=== PATIENT | male | born 1960 | race Caucasian/White ===

== ENCOUNTER → 2016-03-11 | Day surgery (SDC) | payer OTHER ==
[2016-03-03 11:23] VITALS: BMI 32.0
[~2016-03-11] VITALS: Ht 182.9 cm; Wt 106.8 kg
[~2016-03-11] MED LIST: LIDOCAINE HCL 2% 2 ML VIAL (20MG/ML) ONE; MULT-506 PO; PROPOFOL IV EMULSION 10 MG/ML 20 ML VIAL IV ONE; SODIUM CHLORIDE 0.9% 500ML 500 ML IV ONE
[2016-03-11 08:33] VITALS: Ht 182.9 cm; Wt 106.8 kg
--- NOTE | 2016-03-11 08:46 | Endo History and Physical ---
History & Physical Date of Service: Mar 11, 2016. Chief Complaint: Diverticulitis Referring Physician: Dr. Stahl History of Present Illness 55 yo CM who presents for colonoscopy secondary to diverticulitis. Past Surgical History Hx Cardiac Surgery: No Hx Internal Defibrillator: No Hx Pacemaker: No Hx Abdominal Surgery: No Hx of Implantable Prosthesis: No Hx Post-Op Nausea and Vomiting: No Hx Cancer Surgery: No Hx Thoracic Surgery: No Hx Orthopedic: Yes (L/R TKA, LT BICEP REPAIR) Hx Urinary Tract Surgery: No Family History None Social History Smoking Status: Never Smoker Hx Substance Use: No Hx Alcohol Use: No Allergies Coded Allergies: No Known Allergies (Verified , 03/11/16) Current Medications Reported Home Medications Medications Dose Route/Sig Max Daily Dose Days Date Category Multivitamin (Multivitamins) Tab 1 Tab PO QAM 03/03/16 Reported Vital Signs Weight (Kilograms): 106.82 Height (Feet): 6 Height (Inches): 0 Physical Exam General Appearance: WD/WN, no apparent distress Respiratory/Chest: Auscultation: breath sounds normal Cardiovascular: Heart Auscultation: RRR Abdomen: Bowel Sounds: normal Inspection & Palpation: soft, non-distended, no tenderness, guarding & rebound Assessment and Plan Assessment: 55 yo CM who presents for colonoscopy secondary to diverticulitis. Plan: Proceed with colonoscopy.
--- NOTE | 2016-03-11 09:40 | GI REPORT ---
Procedure Date: 03/11/2016 8:54 AM Procedure: Colonoscopy Indications: Follow-up of diverticulitis Medicines: Monitored Anesthesia Care Complications: No immediate complications. Estimated Blood Loss: Estimated blood loss: none. Procedure: Pre-Anesthesia Assessment: - Prior to the procedure, a History and Physical was performed, and patient medications and allergies were reviewed. The patient's tolerance of previous anesthesia was also reviewed. The risks and benefits of the procedure and the sedation options and risks were discussed with the patient. All questions were answered, and informed consent was obtained. Prior Anticoagulants: The patient has taken no previous anticoagulant or antiplatelet agents. ASA Grade Assessment: I - A normal, healthy patient. After reviewing the risks and benefits, the patient was deemed in satisfactory condition to undergo the procedure. After I obtained informed consent, the scope was passed under direct vision. Throughout the procedure, the patient's blood pressure, pulse, and oxygen saturations were monitored continuously. The scope was introduced through the anus and advanced to the terminal ileum. The colonoscopy was performed without difficulty. The patient tolerated the procedure well. The quality of the bowel preparation was good. The terminal ileum, ileocecal valve, appendiceal orifice, and rectum were photographed. Findings: A 5 mm polyp was found in the ascending colon. The polyp was sessile. The polyp was removed with a hot snare. Resection and retrieval were complete. Multiple small-mouthed diverticula were found in the sigmoid colon. Non-bleeding internal hemorrhoids were found during retroflexion. The hemorrhoids were small. Impression: - One 5 mm polyp in the ascending colon, removed with a hot snare. Resected and retrieved. - Diverticulosis in the sigmoid colon. - Non-bleeding internal hemorrhoids. Recommendation: - Resume previous diet. - Continue present medications. - Repeat colonoscopy for surveillance based on pathology results. - Return to primary care physician as previously scheduled. Hua Keys DO 03/11/2016 9:40:44 AM This report has been signed electronically. Note Initiated On: 03/11/2016 8:54 AM
--- NOTE | 2016-03-11 09:43 | Discharge Instructions ---
Endoscopy Patient Instructions Date / Procedure(s) Performed Mar 11, 2016. Colonoscopy Allergy Information Coded Allergies: No Known Allergies (Verified , 03/11/16) Discharge Date / Findings Mar 11, 2016. Colon polyp Diverticulosis Internal hemorrhoids Medication Instructions OK to resume all medications today as prescribed Reported Home Medications Medications Dose Route/Sig Max Daily Dose Days Date Category Multivitamin (Multivitamins) Tab 1 Tab PO QAM 03/03/16 Reported Provider Instructions Activity Restrictions - No exercising or heavy lifting for 24 hours. - Do not drink alcohol the day of the procedure. - Do not drive a car or operate machinery until the day after the procedure. - Do not make any important decisions or sign important papers in 24 hours after the procedure. Following Day: - Return to full activity which may include returning to work/school. Diet Start your diet with liquids and light foods (jello, soup, juice, toast). Then eat your usual diet if not nauseated. Treatment For Common After Affects For mild abdominal pain, bloating, or excessive gas: - Rest - Eat lightly - Lie on right side Follow-Up Information Follow-up with Dr. Stahl as scheduled Anesthesia Information What You Should Know You have had a procedure that required some medicine to reduce anxiety and discomfort. This treatment is called moderate sedation. After receiving the treatment, you may be sleepy, but you will be able to breathe on your own. The effects of the treatment may last for several hours. Follow these instructions along with Activity/Diet recommendations noted above: * Do NOT do anything where dizziness or clumsiness would be dangerous. * Rest quietly at home today, then you can be up and about tomorrow. * Have a responsible person stay with you the rest of today. * You may have had an I.V. today. If so, you may take the dressing off later today. Recommendations Call your doctor if: * Trouble breathing * Continuous vomiting for more than 24 hours * Temperature above 101 degrees * Severe abdominal pain or bloating * Pain not relieved by pain medicine ordered * There is increased drainage or redness from any incision * A large amount of rectal bleeding greater than 2-3 tablespoons. (If you had a polyp/s removed or have hemorrhoids, a small amount of blood - from the rectum is to be expected.) * You have any unanswered questions or concerns. IN THE EVENT OF A SERIOUS EMERGENCY, GO TO THE NEAREST EMERGENCY ROOM Your discharge instructions were prepared by provider Hua Keys. Patient Instructions Signature Page Gerhard Perez Patient (or Guardian) Signature/Date: I have read and understand the instructions given to me by my caregivers. Caregiver/RN/Doctor Signature/Date: The above-named patient and/or guardian has received patient instructions on this date. + Original Patient Signature Page (only) stays with chart. Please make copy for patient.
--- NOTE | 2016-03-11 09:54 | Anesthesiology Progress Note ---
Anesthesia Post Op Note Date & Time Mar 11, 2016 at 09:54 Vital Signs Pain Intensity: 0 Vital Signs Past 12 Hours Date Time Temp Pulse Resp B/P Pulse Ox O2 Delivery O2 Flow Rate FiO2 03/11/16 09:47 84 18 123/75 98 Room Air 03/11/16 09:30 93 18 124/61 97 Room Air 03/11/16 08:46 36.7 83 18 134/84 97 Room Air Notes Mental Status: alert / awake / arousable, participated in evaluation Pt Amnestic to Procedure: Yes Nausea / Vomiting: adequately controlled Pain: adequately controlled Airway Patency, RR, SpO2: stable & adequate BP & HR: stable & adequate Hydration State: stable & adequate Anesthetic Complications: no major complications apparent
[2016-03-11 09:59] VITALS: BP 125/79; PULSE 80; O2SAT 100
== END | disposition home or self-care (01) ==
LOC: C.GI 08:13
PROVIDERS: ATTEND Internal Medicine
DX: Z09 Encounter for follow-up examination after completed treatment for conditions other than malignant neoplasm (principal); K57.30 Diverticulosis of large intestine without perforation or abscess without bleeding; D12.2 Benign neoplasm of ascending colon; K64.8 Other hemorrhoids; Z96.653 Presence of artificial knee joint, bilateral; Z98.890 Other specified postprocedural states; Z68.32 Body mass index [BMI] 32.0-32.9, adult

== ENCOUNTER 2018-03-22 07:26 | Inpatient (IN) ==
--- NOTE | 2018-03-05 15:07 | PAT Medication Instructions ---
Medication Instructions Date of Service March 05, 2018 Home Medications Multivitamins 1 tab PO QAM DO NOT take the morning of surgery Multivitamins 1 tab PO QAM Other Notes If you have any questions please call us at [phone] or [phone] or [phone] or [phone]
--- NOTE | 2018-03-06 08:28 | Anesthesiology Consultation ---
Date of Service March 06, 2018 Assessment & Plan (1) Encounter for pre-operative examination: Plan: Pt reporting sore throat and malaise at PAT appointment. Throat was mildly erythematous on exam, temperature was 99.6 F. Pt encouraged to f/u with PCP if not improved within the next few days and make surgeon aware if illness continuous closer to surgery date. Chart Review Chart Review: Acceptable Risk for Surgery and Patient seen in Pre Admission Testing Teaching & Discussion Instructed NPO after midnight before surgery, except medications with 15 cc of water. Medication instructions provided according to the [facility] guidelines. History Surgery Operation Date: 03/22/18 07:00 Proposed Procedures p Laparoscopic Sigmoid Colectomy - Niko Dickey, Height/Weight Height: 6 ft Weight: 102.9 kg Allergies Allergy/AdvReac Type Severity Reaction Status Date / Time No Known Allergies Allergy Verified 02/28/18 08:09 Medications Home Medications Medication Instructions Recorded Confirmed Last Taken multivitamin [Multiple Vitamins] 1 tab PO QAM 02/28/18 02/28/18 Unknown Past Medical History Medical History Acid reflux DIETARY CONTROLLED/NO MEDS Diverticulitis Multiple infections, multiple rounds of ABX Obesity Shingles RECENT...RESOLVED WITHIN LAST FEW DAYS Past Surgical History Surgical History History of colonoscopy History of surgery on arm LEFT BICEP RE ATTACHMENT History of total left knee replacement History of total right knee replacement Past Anesthesia History No Hx of Anesthesia Complications and No Family Hx of Anesthesia Complications History of PONV No Motion Sickness Screening History of Motion Sickness: Yes Social History Smoking Status: Never smoker Do You Dip or Chew Tobacco: No Hx Alcohol Use: Yes Alcohol type: beer alcohol intake frequency: holidays/special occasions only Alcohol Intake Frequency Comment: None since January 07 diverticulitis Hx Substance Use: No substance use type: does not use Exercise / Class Metabolic Activity II 4-5 Yardwork/Stairs/Walk up hill Review of Systems Pt denies any recent chest pain, shortness of breath, palpitations, cough, fever or URI. Currently has sore throat and had shingles a few weeks ago. Physical Exam Vital Signs BP: 135/85 P: 81bpm SPO2: 97% RA T: 99.6 F R: 16 ENMT Mouth: no dental restorations, no chipped teeth and no loose teeth Thyromental Distance: > or= 3.5 Finger Breadths (3.5) Mallampati Class: II Posterior pharynx mildly erythematous. Neck normal visual inspection; neck extension not limited Respiratory normal respiratory effort Auscultation: lungs clear to auscultation bilaterally Cardiovascular Rate/Rhythm: regular rate and regular rhythm Heart Sounds: no murmur Vessels: no carotid bruit Testing Electrocardiogram Date: 03/06/18 Findings: + NSR @ (75) Laboratory Results 03/06/18 08:14 03/06/18 08:14 Blood Type O Positive 03/06/18 08:14 Antibody Screen NEGATIVE 03/06/18 08:14
[2018-03-06 09:46] LABS: Basophils # (auto) 0.02 K/uL (0-0.2); Basophils % (auto) 0.2 %; Eosinophils # (auto) 0.16 K/uL (0-0.5); Eosinophils % (auto) 1.8 %; Hematocrit (blood only) 41.5 % (42-52); Hemoglobin 14.7 g/dL (14.0-18.0); Immature Granulocytes # (auto) 0.01 K/uL (0.00-0.02); Immature Granulocytes % (auto) 0.1 %; Lymphocytes # (auto) 1.14 K/uL (1.2-3.4); Lymphocytes % (auto) 12.9 %; Mean Corpuscular Hgb Conc 35.4 g/dL (32-36); Mean Corpuscular Volume 90.8 fL (80-100); Mean Platelet Volume 9.7 fL (7.4-10.4); Neutrophils # (auto) 6.72 K/uL (1.4-6.5); Platelet Count 162 K/uL (130-400); RDW Coefficient of Variation 13.5 % (11.5-14.5); RDW Standard Deviation 44.3 fL (36.4-46.3); Red Blood Count 4.57 M/uL (4.7-6.1); White Blood Count 8.85 K/uL (4.8-10.8)
[2018-03-06 10:00] LABS: Calcium 9.5 mg/dl (8.5-10.1); Creatinine Clr Calc Pharmacy 126.4 ml/min; Est GFR (African American) 114.9; Est GFR (Non-African American) 99.2; Potassium 4.6 mmol/L (3.5-5.1)
[~2018-03-22 07:26] MED LIST changes: +CEFAZOLIN 2000MG 2,000 MG/15 ML SYR IV SCH; +HEPARIN SOD 5,000 UNIT/0.5 ML VIAL SQ SCH; -LIDOCAINE HCL 2% 2 ML VIAL (20MG/ML) ONE; +LR 15ML/HR IV SCH; -MULT-506 PO; -PROPOFOL IV EMULSION 10 MG/ML 20 ML VIAL IV ONE; -SODIUM CHLORIDE 0.9% 500ML 500 ML IV ONE
--- NOTE | 2018-03-22 08:12 | History & Physical Bridge Note ---
Date of Service March 22, 2018 History & Physical Bridge Note I have examined the patient, reviewed the History & Physical and in the interval since the performance of the History & Physical I have noted the following changes of clinical significance: no changes noted
[2018-03-22] MEDS ORDERED: GLYCOPYRROLATE 0.2 MG/ML VIAL ONE (08:37)
[2018-03-22] MEDS ORDERED: DEXAMETHASONE SOD INJ 4 MG/ML VIAL ONE (08:37)
[2018-03-22] MEDS ORDERED: NEOSTIGMINE METHYLSULFATE 5 MG/5 ML SYR ONE (08:37)
[2018-03-22] MEDS ORDERED: MIDAZOLAM HCL 1 MG/ML 2ML VIAL ONE (08:37)
[2018-03-22] MEDS ORDERED: fentaNYL citrate 100 MCG/2 ML VIAL ONE (08:37)
[2018-03-22] MEDS ORDERED: ONDANSETRON INJ 2 MG/ML 2 ML VIAL ONE ×2 (08:37→09:53)
[2018-03-22] MEDS ORDERED: PROPOFOL IV EMULSION 10 MG/ML 20 ML VIAL IV ONE (08:37)
[2018-03-22] MEDS ORDERED: LIDOCAINE HCL 2% 2 ML VIAL/AMP(20MG/ML) INFIL ONE (08:37)
[2018-03-22] MEDS ORDERED: BUPIVACAINE/EPINEPHRINE 0.5% MPF 1:200,000 30 ML VIAL ONE (08:38)
[2018-03-22] MEDS ORDERED: HYDROmorphone INJ 1 MG/ML SYRINGE IV PRN (08:39)
[2018-03-22] MEDS ORDERED: ATROPINE SULFATE 0.1 MG/ML 10ML SYR IV PRN (08:39)
[2018-03-22] MEDS ORDERED: ONDANSETRON INJ 2 MG/ML 2 ML VIAL IV PRN ×2 (08:39→13:15)
[2018-03-22] MEDS ORDERED: KETOROLAC 30 MG/ML VIAL IV PRN (08:39)
[2018-03-22] MEDS ORDERED: SODIUM CHLORIDE 0.9% INJ 10 ML VIAL ONE (08:45)
[2018-03-22] MEDS ORDERED: BUPIVACAINE 0.5 % 5 MG/1 ML PF 10ML VIAL ONE (08:45)
[2018-03-22] MEDS ORDERED: ePHEDrine sulfate 50 MG/ML SYR ONE (09:53)
[2018-03-22] MEDS ORDERED: BUPIVACAINE LIPOSOME 1.3% 266 MG/20 ML VIAL INFIL ONE (10:28)
[2018-03-22] MEDS ORDERED: BUPIVACAINE LIPOSOME 1.3% 266 MG/20 ML VIAL ONE (10:29)
[2018-03-22] MEDS ORDERED: BUPIVACAINE 0.5 % 5 MG/1 ML MPF 30ML VIAL ONE (10:58)
--- NOTE | 2018-03-22 11:12 | Post Operative Brief Note ---
Immediate Post Op Note v1 Date of Surgery March 22, 2018 Pre & Post Diagnosis Operation Date: 03/22/18 09:00 Pre-Op Diagnosis: Diverticulitis of Sigmoid Colon Post-Op Diagnosis: Diverticulitis of Sigmoid Colon Procedure Operation Date: 03/22/18 09:00 Actual Procedures p Laparoscopic Sigmoid Colectomy(Not Applicable) - Niko Dickey DO Surgeon Niko Dickey DO Gravel Machine Operator lois Meyers Estimated Blood Loss 10 Findings Consistent with Post-Op Diagnosis Specimens sigmoid colon Drains Harden Catheter and Osvaldo-Miller Drain (10 flat)
--- NOTE | 2018-03-22 12:43 | Anesthesiology Progress Note ---
Date of Service March 22, 2018 Anesthesia Post Procedure Vital Signs Vital Signs: Temp Pulse Pulse Resp BP BP Pulse Ox 03/22/18 12:35 36.3 C L 75 14 125/76 100 03/22/18 12:25 76 14 125/80 100 03/22/18 12:15 78 12 123/79 100 03/22/18 12:05 79 16 122/70 98 03/22/18 11:55 84 18 114/73 99 03/22/18 11:48 36.3 C L 85 20 121/73 97 03/22/18 08:07 37 C 93 H 18 134/97 96 Pain Intensity Bilateral Abdomen: Pain Intensity: 3 Notes Mental Status: alert / awake / arousable Patient Amnestic to Procedure: Yes Nausea / Vomiting: adequately controlled Pain: adequately controlled Airway Patency, RR, SpO2: stable & adequate BP & HR: stable & adequate Hydration State: stable & adequate Anesthetic Complications: no major complications apparent
--- NOTE | 2018-03-22 13:54 | Operative Report ---
Post Operative Report Pre & Post Diagnosis Operation Date: 03/22/18 09:00 Pre-Op Diagnosis: Diverticulitis of Sigmoid Colon Post-Op Diagnosis: Diverticulitis of Sigmoid Colon Procedure Operation Date: 03/22/18 09:00 Actual Procedures p Laparoscopic Sigmoid Colectomy(Not Applicable) - Niko Dickey DO Surgeon Niko Dickey DO Documentation Spec lois Meyers Estimated Blood Loss 10 Findings Consistent with Post-Op Diagnosis Specimens sigmoid colon Description of Procedure After informed consent was obtained the patient was taken to the operating room and placed in supine position. After successful intubation a Harden catheter was placed and the abdomen was shaved. He was then placed in a low lithotomy position in yellowfin stirrups. The abdomen and perineum were sterilely prepped and draped in usual fashion. A periumbilical incision was made with an 11 blade scalpel and carried down through the soft tissue using cautery. The anterior rectus fascia was opened using cautery and 2 #0 Vicryl stay sutures were placed. Peritoneum was elevated with hemostats and incised under direct vision using a Metzenbaum scissor. A finger sweep was performed. A 12 mm Martin trocar was placed. The abdomen was insufflated to 20 mmHg. Laparoscope was inserted and the abdomen examined in 360. a right lower quadrant 12 mm trocar, a right mid abdominal 5 mm trocar and a left lower quadrant 5 mm trocar were all placed under direct vision. A look around the abdomen showed no gross abnormalities. The left and sigmoid colon areas were thickened and slightly inflamed with some fat wrapping. Part of the sigmoid colon was attached to the abdominal sidewall. I began by using the harmonic scalpel to take down these adhesions. We then opened the white line of Toldt and extended this up almost to the splenic flexure as well as inferiorly to the peritoneal reflection. It was rather obvious what part of the sigmoid colon was involved with the prior diverticulitis. We marked the proximal part of the colon where it appeared to have normal serosa and minimal fat wrapping. I marked this with a 3-0 Polysorb stitch. We then made a window in the distal colon near the rectosigmoid junction again and an area that had normal appearing colon. After creating a window with the harmonic scalpel I used a ALISIA purple cartridge stapler to transect the colon in this area. I then used a harmonic scalpel to take down the mesentery of the sigmoid colon up to the area of the previously placed stitch. We then extended the left lower quadrant trocar site with a scalpel and used cautery to carry this down through the soft tissue and open the fascia. We then exteriorized the colon through this incision. We used bowel clamps and divided the colon and passed it off to be sent to pathology. We then used a sizer to estimate the size of the EEA to be 28 mm. We then used 2- [address] a pursestring stitch. We placed the anvil of a 28 mm stapler into the end of the colon and secured it using the pursestring stitch. This was then dunked back into the abdominal cavity. The fascia of this port was closed using 0 PDS in a running fashion. At this point my PA I both changed our gloves. We reinsufflated the abdomen. The colon was still nice and floppy and easily laid over the pelvic brim so that we could make a tension-free anastomosis. We used sizers to come in the rectal stump easily. We then brought the handle of the EEA into the end of the rectal stump. We deployed the spike anterior to the previously made staple line. We then connected the anvil to the handle and secured them together and fired it creating a circular end to end anastomosis. Both donut rings were intact. I insufflated the anastomosis under water and it was airtight. There was adequate hemostasis at the end of the procedure. I did thoroughly irrigate the pelvis. Again no other abnormalities were identified. A 10 flat Osvaldo-Miller drain was placed in the pelvis and brought out through 1 of the trocar sites secured to the skin using 0 Vicryl. The trochars were all removed and the abdomen desufflated. The fascia the camera port was closed using 0 Vicryl in a [id number] fashion. All the wounds were irrigated and closed using 4-0 Monocryl. Marcaine was injected around them for postoperative analgesia and skin glue used as a dressing. The patient was awaken extubated and transferred to recovery in stable condition. Physician child care assistant was present through the entire case. Helped with wound exposure. He helped run the camera as well as retract the colon throughout the case. He assisted with the anastomosis wound closure and dressing placement. I attest to the content of the Intraoperative Record and any orders documented therein. Any exceptions are noted below.
[2018-03-22 15:32] LABS: INR 1.1 (0.9-1.1); Prothrombin Time 11.3 Seconds (9.0-12.0)
[2018-03-22] MEDS: CEFAZOLIN 2000MG 2,000 MG/15 ML SYR IV SCH ×2 (16:58→23:56)
[2018-03-22] MEDS: HYDROmorphone INJ 0.5 MG/0.5 ML SYR IV PRN ×2 (16:58→20:13)
[2018-03-22] MEDS: LACTATED RINGER'S 1,000 ML IV SCH ×2 (16:58→19:58)
[2018-03-23] MEDS: HYDROmorphone INJ 0.5 MG/0.5 ML SYR IV PRN ×3 (00:06→19:17)
[2018-03-23] MEDS: LACTATED RINGER'S 1,000 ML IV SCH ×3 (02:28→19:16)
[2018-03-23 07:01] LABS: Basophils # (auto) 0.01 K/uL (0-0.2); Basophils % (auto) 0.1 %; Hematocrit (blood only) 37.4 % (42-52); Hemoglobin 13.4 g/dL (14.0-18.0); Immature Granulocytes # (auto) 0.03 K/uL (0.00-0.02); Immature Granulocytes % (auto) 0.2 %; Lymphocytes # (auto) 1.51 K/uL (1.2-3.4); Lymphocytes % (auto) 11.8 %; Mean Corpuscular Hgb Conc 35.8 g/dL (32-36); Mean Platelet Volume 9.5 fL (7.4-10.4); Monocytes % (auto) 9.3 %; Neutrophils % (auto) 78.6 %; Platelet Count 218 K/uL (130-400); RDW Coefficient of Variation 13.7 % (11.5-14.5); RDW Standard Deviation 45.4 fL (36.4-46.3); Red Blood Count 4.11 M/uL (4.7-6.1); White Blood Count 12.85 K/uL (4.8-10.8)
[2018-03-23] MEDS ORDERED: KETOROLAC 30 MG/ML VIAL IV STA (07:30)
--- NOTE | 2018-03-23 07:34 | Surgery Progress Note ---
Date of Service March 23, 2018 Assessment & Plan (1) Diverticulitis: POD 1 lap sigmoid d/c stevens start clears, decrease IVF try a dose of Toradol begin Lovenox as above. overall doing ok. stevens out now. increase activity Dr. Valencia covering weekend. Subjective some pain, some problems with stevens draining, no nausea Physical Exam 2 Vital Signs (Past 24 Hours): Last Vital Signs Temp 36.4 C L 03/23/18 03:26 Pulse 68 03/23/18 03:26 Resp 18 03/23/18 03:26 BP 124/78 03/23/18 03:26 Pulse Ox 96 03/23/18 03:26 Gastrointestinal (Abdomen): Inspection/Auscultation: + abdominal surgical incision (dry) and + abdominal surgical drain present (40 cc overnight) Percussion/Palpation: abdomen soft UOP 950
[2018-03-23 07:37] LABS: BUN Creatinine Ratio 12.7 (10-20); Calcium 8.8 mg/dl (8.5-10.1); Creatinine Clr Calc Pharmacy 111.4 ml/min; Est GFR (African American) 110.5; Est GFR (Non-African American) 95.4; Potassium 4.2 mmol/L (3.5-5.1)
[2018-03-23] MEDS: CEFAZOLIN 2000MG 2,000 MG/15 ML SYR IV SCH (08:56)
[2018-03-23] MEDS: ENOXAPARIN INJ 40 MG/0.4 ML SYR SQ SCH (08:57)
--- NOTE | 2018-03-23 10:02 | Anesthesiology Progress Note ---
Date of Service March 23, 2018 Anesthesia Post Procedure Vital Signs Vital Signs: Temp Pulse Pulse Resp BP BP Pulse Ox 03/23/18 07:25 36.6 C 62 16 112/72 97 03/23/18 03:26 36.4 C L 68 18 124/78 96 03/22/18 23:42 36.7 C 74 18 120/72 94 03/22/18 19:38 36.3 C L 80 16 117/72 94 03/22/18 17:26 36.4 C L 96 H 14 131/80 94 03/22/18 16:01 36.3 C L 85 14 133/79 96 03/22/18 15:30 36.4 C L 91 H 14 124/77 95 03/22/18 15:20 36.7 C 87 16 115/74 91 03/22/18 14:45 86 16 133/82 03/22/18 13:30 80 16 122/84 97 03/22/18 13:00 36.2 C L 80 14 124/80 97 03/22/18 12:45 74 12 130/78 100 03/22/18 12:35 36.3 C L 75 14 125/76 100 03/22/18 12:25 76 14 125/80 100 03/22/18 12:15 78 12 123/79 100 03/22/18 12:05 79 16 122/70 98 03/22/18 11:55 84 18 114/73 99 03/22/18 11:48 36.3 C L 85 20 121/73 97 Pain Intensity Bilateral Abdomen: Pain Intensity: 5 Notes Mental Status: alert / awake / arousable Patient Amnestic to Procedure: Yes Nausea / Vomiting: adequately controlled Pain: adequately controlled Airway Patency, RR, SpO2: stable & adequate BP & HR: stable & adequate Hydration State: stable & adequate Anesthetic Complications: no major complications apparent
[2018-03-23] MEDS: ACETAMINOPHEN 1,000 MG/100 ML VIAL IV SCH ×2 (14:28→21:27)
[2018-03-24] MEDS: ACETAMINOPHEN 1,000 MG/100 ML VIAL IV SCH ×2 (05:20→11:29)
[2018-03-24] MEDS: HYDROmorphone INJ 0.5 MG/0.5 ML SYR IV PRN ×3 (05:20→20:22)
[2018-03-24] MEDS: LACTATED RINGER'S 1,000 ML IV SCH ×2 (05:20→15:04)
[2018-03-24 07:06] LABS: Basophils # (auto) 0.02 K/uL (0-0.2); Basophils % (auto) 0.3 %; Eosinophils # (auto) 0.07 K/uL (0-0.5); Eosinophils % (auto) 0.9 %; Hematocrit (blood only) 35.2 % (42-52); Hemoglobin 12.4 g/dL (14.0-18.0); Immature Granulocytes # (auto) 0.01 K/uL (0.00-0.02); Immature Granulocytes % (auto) 0.1 %; Lymphocytes # (auto) 1.18 K/uL (1.2-3.4); Lymphocytes % (auto) 15.7 %; Mean Corpuscular Hgb Conc 35.2 g/dL (32-36); Mean Corpuscular Volume 92.1 fL (80-100); Mean Platelet Volume 9.1 fL (7.4-10.4); Monocytes # (auto) 0.67 K/uL (0.11-0.59); Monocytes % (auto) 8.9 %; Neutrophils # (auto) 5.58 K/uL (1.4-6.5); Neutrophils % (auto) 74.1 %; Platelet Count 166 K/uL (130-400); RDW Coefficient of Variation 13.8 % (11.5-14.5); RDW Standard Deviation 45.6 fL (36.4-46.3); Red Blood Count 3.82 M/uL (4.7-6.1); White Blood Count 7.53 K/uL (4.8-10.8)
[2018-03-24 07:36] LABS: BUN Creatinine Ratio 12.7 (10-20); Calcium 8.3 mg/dl (8.5-10.1); Creatinine Clr Calc Pharmacy 130.7 ml/min; Est GFR (Non-African American) 101.8; Potassium 3.9 mmol/L (3.5-5.1)
[2018-03-24] MEDS: ENOXAPARIN INJ 40 MG/0.4 ML SYR SQ SCH (08:55)
--- NOTE | 2018-03-24 10:47 | Surgery Progress Note ---
Date of Service March 24, 2018 Assessment & Plan (1) Diverticulitis: POD #2 s/p Lap Sigmoid Patient seen and examined with Dr. Valencia Pain controlled Passing flatus, no BM yet. Tolerating clear liquid diet- will advance to full liquids for lunch. Advised pt to go slow with diet. Drain dressing changed. Please call with questions or concerns. Subjective Patient sitting in bed- resting comfortably- mild abdominal pain. Physical Exam 2 Vital Signs (Past 24 Hours): Last Vital Signs Temp 36.8 C 03/24/18 07:50 Pulse 66 03/24/18 07:50 Resp 16 03/24/18 07:50 BP 129/80 03/24/18 07:50 Pulse Ox 97 03/24/18 07:50 Gastrointestinal (Abdomen): Inspection/Auscultation: + abdominal surgical incision (healing well. no signs of infection. ) and + abdominal surgical drain present Percussion/Palpation: + abdomen tender (as expected at incision sites. ) and abdomen soft; no guarding and abdomen not rigid
[2018-03-25] MEDS: LACTATED RINGER'S 1,000 ML IV SCH ×3 (01:14→21:05)
[2018-03-25] MEDS: HYDROmorphone INJ 0.5 MG/0.5 ML SYR IV PRN ×3 (01:15→23:37)
[2018-03-25 06:51] LABS: Basophils # (auto) 0.01 K/uL (0-0.2); Basophils % (auto) 0.1 %; Eosinophils # (auto) 0.16 K/uL (0-0.5); Eosinophils % (auto) 2.3 %; Hematocrit (blood only) 37.2 % (42-52); Hemoglobin 13.3 g/dL (14.0-18.0); Immature Granulocytes # (auto) 0.02 K/uL (0.00-0.02); Immature Granulocytes % (auto) 0.3 %; Lymphocytes # (auto) 1.12 K/uL (1.2-3.4); Lymphocytes % (auto) 15.8 %; Mean Corpuscular Hgb Conc 35.8 g/dL (32-36); Mean Corpuscular Volume 92.3 fL (80-100); Mean Platelet Volume 9.1 fL (7.4-10.4); Monocytes # (auto) 0.71 K/uL (0.11-0.59); Neutrophils # (auto) 5.07 K/uL (1.4-6.5); Neutrophils % (auto) 71.5 %; Platelet Count 174 K/uL (130-400); RDW Coefficient of Variation 13.5 % (11.5-14.5); RDW Standard Deviation 45.4 fL (36.4-46.3); Red Blood Count 4.03 M/uL (4.7-6.1); White Blood Count 7.09 K/uL (4.8-10.8)
[2018-03-25 07:31] LABS: BUN Creatinine Ratio 7.5 (10-20); Calcium 8.7 mg/dl (8.5-10.1); Creatinine Clr Calc Pharmacy 124.1 ml/min; Est GFR (African American) 115.5; Est GFR (Non-African American) 99.7; Potassium 3.8 mmol/L (3.5-5.1)
--- NOTE | 2018-03-25 09:54 | Surgery Progress Note ---
Date of Service March 25, 2018 Assessment & Plan (1) Diverticulitis: POD #3 s/p Lap Sigmoid Patient seen and examined with Dr. Valencia Pain controlled, ambulating in hallway. Passing flatus, no BM Patient tolerating full liquid diet and feels hungry- will advance to low fiber diet. Incisions all clean, dry, intact. No signs of infection. POD #2 s/p Lap Sigmoid Patient seen and examined with Dr. Valencia Pain controlled Passing flatus, no BM yet. Tolerating clear liquid diet- will advance to full liquids for lunch. Advised pt to go slow with diet. Drain dressing changed. Please call with questions or concerns. Subjective Patient sitting in bed- resting comfortably- mild abdominal pain. Passing flatus, but denies BM. Physical Exam 2 Vital Signs (Past 24 Hours): Last Vital Signs Temp 37.2 C 17/ 07:50 Pulse 81 03/25/ 07:50 Resp 14 03/25/18 07:50 BP 130/80 03/25/ 07:50 Pulse Ox 96 03/25/18 07:50 Gastrointestinal (Abdomen): Inspection/Auscultation: + abdominal surgical incision (healing well. no signs of infection. ) and + abdominal surgical drain present Percussion/Palpation: + abdomen tender (as expected at incision sites. ) and abdomen soft; no guarding and abdomen not rigid
[2018-03-25] MEDS: ENOXAPARIN INJ 40 MG/0.4 ML SYR SQ SCH (10:05)
[2018-03-25] MEDS: ACETAMINOPHEN 1,000 MG/100 ML VIAL IV PRN (16:58)
[2018-03-26] MEDS: LACTATED RINGER'S 1,000 ML IV SCH (05:54)
[2018-03-26] MEDS: ACETAMINOPHEN 1,000 MG/100 ML VIAL IV PRN ×2 (05:57→14:39)
[2018-03-26 06:58] LABS: Basophils # (auto) 0.02 K/uL (0-0.2); Basophils % (auto) 0.2 %; Hematocrit (blood only) 36.6 % (42-52); Hemoglobin 13.1 g/dL (14.0-18.0); Immature Granulocytes # (auto) 0.01 K/uL (0.00-0.02); Immature Granulocytes % (auto) 0.1 %; Lymphocytes # (auto) 0.95 K/uL (1.2-3.4); Lymphocytes % (auto) 9.6 %; Mean Corpuscular Hgb Conc 35.8 g/dL (32-36); Mean Corpuscular Volume 89.9 fL (80-100); Mean Platelet Volume 9.1 fL (7.4-10.4); Monocytes # (auto) 0.97 K/uL (0.11-0.59); Monocytes % (auto) 9.8 %; Neutrophils # (auto) 7.81 K/uL (1.4-6.5); Neutrophils % (auto) 79.3 %; Platelet Count 172 K/uL (130-400); RDW Coefficient of Variation 13.4 % (11.5-14.5); RDW Standard Deviation 43.9 fL (36.4-46.3); Red Blood Count 4.07 M/uL (4.7-6.1); White Blood Count 9.86 K/uL (4.8-10.8)
[2018-03-26 07:30] LABS: Calcium 8.7 mg/dl (8.5-10.1); Creatinine Clr Calc Pharmacy 132.5 ml/min; Est GFR (African American) 118.7; Est GFR (Non-African American) 102.4; Potassium 3.7 mmol/L (3.5-5.1)
[2018-03-26] MEDS: ENOXAPARIN INJ 40 MG/0.4 ML SYR SQ SCH (08:46)
--- NOTE | 2018-03-26 09:35 | Surgery Progress Note ---
Date of Service March 26, 2018 Assessment & Plan (1) Diverticulitis: POD 4 doing well awaiting bowel movement. d/c planning Subjective feeling ok. some discomfort. no bowel movement yet. +flatus. Physical Exam 2 Vital Signs (Past 24 Hours): Last Vital Signs Temp 36.7 C 03/26/18 07:50 Pulse 98 H 03/26/18 07:50 Resp 14 03/26/18 07:50 BP 126/82 03/26/18 07:50 Pulse Ox 96 03/26/18 07:50 Physical Exam: alert. nad abd: soft. MORALES serous. wounds look good.
[2018-03-26] MEDS ORDERED: HYDROCODONE/ACETAMOPHEN 5/325MG TAB PO PRN (09:37)
[2018-03-26] MEDS ORDERED: PIPERACILL/TAZOBAC CONSULT ACTIVE PRN (19:29)
[2018-03-26] MEDS ORDERED: PIPERACILLIN/TAZOBACTAM 3.375 GM in DEXTROSE 5% 100 ML IV STA (20:21)
[2018-03-27] MEDS: ACETAMINOPHEN 1,000 MG/100 ML VIAL IV PRN (00:21)
[2018-03-27] MEDS: PIPERACILLIN/TAZOBACTAM 3.375 GM in DEXTROSE 5% 100 ML IV SCH ×3 (02:36→17:05)
--- NOTE | 2018-03-27 07:58 | Surgery Progress Note ---
Date of Service March 27, 2018 Assessment & Plan (1) Diverticulitis: pod 5 suspect infected seroma of LLQ. will open at bedside today. continue antibiotics awaiting return of bowel function. Subjective doing ok. feels better than yesterday. no bm yet. pain at LLQ incision. Physical Exam 2 Vital Signs (Past 24 Hours): Last Vital Signs Temp 37.1 C 03/27/18 07:30 Pulse 88 03/27/18 07:30 Resp 16 03/27/18 07:30 BP 123/83 03/27/18 07:30 Pulse Ox 98 03/27/18 07:30 Physical Exam: alert. nad abd: soft. LLQ with erythema/tender and appears to have fluid
[2018-03-27] MEDS: HYDROCODONE/ACETAMOPHEN 5/325MG TAB PO PRN ×2 (09:03→15:26)
[2018-03-27] MEDS: ENOXAPARIN INJ 40 MG/0.4 ML SYR SQ SCH (09:59)
[2018-03-28] MEDS: PIPERACILLIN/TAZOBACTAM 3.375 GM in DEXTROSE 5% 100 ML IV SCH ×3 (01:35→18:19)
[2018-03-28 05:53] LABS: Hematocrit (blood only) 35.3 % (42-52); Hemoglobin 12.8 g/dL (14.0-18.0); Mean Corpuscular Hgb Conc 36.3 g/dL (32-36); Mean Corpuscular Volume 89.4 fL (80-100); Mean Platelet Volume 9.2 fL (7.4-10.4); Platelet Count 188 K/uL (130-400); RDW Coefficient of Variation 13.2 % (11.5-14.5); RDW Standard Deviation 43.4 fL (36.4-46.3); Red Blood Count 3.95 M/uL (4.7-6.1); White Blood Count 10.04 K/uL (4.8-10.8)
[2018-03-28 06:28] LABS: Creatinine Clr Calc Pharmacy 127.3 ml/min; Est GFR (African American) 116.8; Est GFR (Non-African American) 100.7
[2018-03-28] MEDS: HYDROCODONE/ACETAMOPHEN 5/325MG TAB PO PRN (07:37)
--- NOTE | 2018-03-28 08:31 | Surgery Progress Note ---
Date of Service March 28, 2018 Assessment & Plan (1) Diverticulitis: POD 6 seroma of LLQ. ? infected cont antibiotics not quite ready for d/c today. likely d/c tomorrow Subjective doing ok. +BM. feels pressure building up at LLQ incision again. radha diet Physical Exam 2 Vital Signs (Past 24 Hours): Last Vital Signs Temp 36.7 C 03/28/18 07:39 Pulse 83 03/28/18 07:39 Resp 16 03/28/18 07:39 BP 112/70 03/28/18 07:39 Pulse Ox 97 03/28/18 07:39 Physical Exam: alert. nad erythema of LLQ incision improved. more of the incsion opened today and serous fluid expressed. dressing changed.
[2018-03-28] MEDS: ENOXAPARIN INJ 40 MG/0.4 ML SYR SQ SCH (08:32)
[2018-03-29] MEDS: HYDROCODONE/ACETAMOPHEN 5/325MG TAB PO PRN ×2 (00:18→14:10)
[2018-03-29] MEDS: PIPERACILLIN/TAZOBACTAM 3.375 GM in DEXTROSE 5% 100 ML IV SCH ×2 (02:20→09:29)
[2018-03-29] MEDS: ENOXAPARIN INJ 40 MG/0.4 ML SYR SQ SCH (09:28)
--- NOTE | 2018-03-29 10:09 | Surgery Progress Note ---
Date of Service March 29, 2018 Assessment & Plan (1) Diverticulitis: doing well will d/c on augmentin discussed wound care at home f/u 1 week Subjective feeling better today/would like to go home. radha diet/pain controlled Physical Exam 2 Vital Signs (Past 24 Hours): Last Vital Signs Temp 36.4 C L 03/29/18 07:02 Pulse 77 03/29/18 07:02 Resp 16 03/29/18 07:02 BP 122/81 03/29/18 07:02 Pulse Ox 98 03/29/18 07:02 Physical Exam: alert/nad LLQ wound with decreased erythema and decreased drainage
--- NOTE | 2018-03-31 03:10 | Discharge Summary ---
PRIMARY DISCHARGE DIAGNOSIS: Recurrent diverticulitis. PROCEDURE PERFORMED: Laparoscopic sigmoid colectomy. HOSPITAL COURSE: The patient is a 57-year-old male with recurrent diverticulitis taken to the operating room for laparoscopic sigmoid resection. The procedure was well tolerated. He was transferred to the surgical floor. Lovenox was used for DVT prophylaxis and perioperative antibiotics were continued for 24 hours. He was started on clear liquids on postoperative day 1. By day 2, he was passing flatus, was advanced to full liquids. He was doing well on day 3, was able to tolerate a low fiber diet. He was ambulating. Pain was managed with oral analgesics. We are waiting for a bowel movement prior to discharge. On day 5, he had some erythema around his incision which we opened a portion of the incision and packed this. He was started on IV Zosyn. His erythema was improving over the next 2 days. There was decrease in drainage. On postoperative day 7, he was stable for discharge home on oral antibiotics. There was minimal erythema and induration had resolved. His abdomen was soft. The other incisions were clean and dry. DISCHARGE INSTRUCTIONS: Discharge home. Follow up with Dr. Dickey in approximately 1 week. DISCHARGE MEDICATIONS: Augmentin 875 mg p.o. b.i.d. x1 week, [place] 1-2 tablets every 4 hours as needed. Can continue his daily home multivitamin.
== END 2018-03-29 14:25 | disposition home or self-care (01) | DRG 331 ==
LOC: ASU 07:26 → 3W 11:18

== ENCOUNTER 2022-08-31 13:19 | Observation (INO) ==
--- NOTE | 2022-08-31 13:40 | ED Triage Note ---
Date of Service August 31, 2022 History of Present Illness This patient was briefly evaluated while in triage. An abbreviated physical exam was performed. This patient is a 61-year-old Male who presents to the ED for evaluation of right sided abdominal pain x 3 weeks. Pain is intermittent in nature. Reports associated fevers, nausea, diarrhea. History of partial colectomy. Has not taken anything for his symptoms Physical Exam Constitutional: alert and oriented x3. no acute distress. HEENT: normocephalic, atraumatic. normal conjunctiva.PERRLA. EOM's grossly intact. Respiratory: lungs are clear to auscultation without wheezes, rhonchi, or rales bilaterally. equal chest rise. normal respiratory effort, no accessory muscle use. Cardiovascular: normal heart sounds without murmur. regular rate and rhythm. GI: abdomen is soft, nondistended. Tender to palpation RUQ. Positive Madrid's. No rebound tenderness or guarding. MSK: moves all 4 extremities spontaneously Psych:appropriate mood and affect. Initial orders for labs and / or imaging were placed and patient was placed in the waiting area until a bed is available. Please see further documentation for the full ED course.
[2022-08-31 14:57] LABS: Basophils # (auto) 0.02 K/uL (0-0.2); Basophils % (auto) 0.3 %; Eosinophils # (auto) 0.08 K/uL (0-0.50); Eosinophils % (auto) 1.3 %; Hematocrit (blood only) 41.6 % (42.0-52.0); Hemoglobin 14.6 g/dl (14.0-18.0); Immature Granulocytes # (auto) 0.01 K/uL (0.01-0.20); Immature Granulocytes % (auto) 0.2 %; Lymphocytes # (auto) 1.21 K/uL (1.2-3.4); Lymphocytes % (auto) 19.4 %; Mean Corpuscular Hemoglobin 32.4 pg (25.0-34.0); Mean Corpuscular Hgb Conc 35.1 g/dL (32.0-36.0); Mean Corpuscular Volume 92.4 fL (80.0-100.0); Mean Platelet Volume 9.8 fL (9.4-12.4); Monocytes # (auto) 0.48 K/uL (0.11-0.59); Monocytes % (auto) 7.7 %; Neutrophils # (auto) 4.44 K/uL (1.40-6.50); Neutrophils % (auto) 71.1 %; Platelet Count 206 K/uL (130-400); RDW Coefficient of Variation 11.9 % (11.5-14.5); RDW Standard Deviation 40.5 fL (36.4-46.3); White Blood Count 6.24 K/ul (4.8-10.8)
[2022-08-31 15:11] LABS: Albumin Globulin Ratio 1.7 (0.9-2); Albumin Level 5.2 gm/dl (3.4-5.0); BUN Creatinine Ratio 10.5 (10-20); Bilirubin,Total 0.6 mg/dl (0.2-1.0); Creatinine Clr Calc Pharmacy 108.8 ml/min; Est GFR (African American) 108.5 ml/min; Est GFR (Non-African American) 93.6 ml/min; Globulin 3.1 gm/dl (2.5-4.0); Potassium 4.2 mmol/L (3.5-5.1); Total Protein 8.3 gm/dl (6.0-8.3)
--- NOTE | 2022-08-31 15:59 | Ultrasound Report ---
ABDOMINAL ULTRASOUND, RIGHT UPPER QUADRANT HISTORY: Right upper quadrant pain.. COMPARISON: Abdomen and pelvis CT 01/10/2018. FINDINGS: Pancreas: The visualized pancreas demonstrates a normal echotexture. Liver: The liver is echogenic consistent with fatty change. 17 cm in length. The main portal vein is patent. Gallbladder: No gallbladder wall thickening. No gallstones. A 3 mm gallbladder polyp. CBD: 4 mm. Right kidney: No hydronephrosis. IMPRESSION: 1. No gallbladder wall thickening. No gallstones. 2. A 3 mm gallbladder polyp. 3. Hepatic steatosis. ACT 112: Negative or not required by law. Electronically signed by: Can Holder M.D. 08/31/2022 3:58 PM
--- NOTE | 2022-08-31 16:05 | Emergency Department Note ---
ED Provider Note History of Present Illness Chief Complaint: Abdominal Pain Stated Complaint: REF BY DOC; ABDOMINAL PAIN Time Seen by Provider: 08/31/22 15:41 Source: patient Mode of arrival: ambulatory Limitations: no limitations This patient is a 61-year-old male who presents to the ER for evaluation of abdominal pain. Patient reports that he has been having some problems with intermittent abdominal pain over the past month. He has some intermittent diarrhea and feels feverish as well. He states that he began having pain yesterday throughout the day with some nausea but felt better by the evening. However, today he noticed a sharp pain in his right lower abdomen. Reports nausea, no vomiting. He has not eaten today. He does report a history of dive rticulitis but had a colon resection in the past for this. Home Medications Medication Instructions Recorded Confirmed Type multivitamin (Multiple Vitamins 1 tab PO QAM 02/28/18 08/31/22 History tablet) Allergies Allergy/AdvReac Type Severity Reaction Status Date / Time No Known Allergies Allergy Verified 08/31/22 12:31 Past Med/Surg History Medical History Acid reflux DIETARY CONTROLLED/NO MEDS Diverticular disease MULTIPLE INECTIONS; BOWEL RESECTION History of COVID-19 ?2021- FEVER, NEVILLE, FATIGUE; RESOLVED History of shingles 2018 Surgical History History of bowel resection History of colonoscopy History of surgery on arm LEFT BICEP RE ATTACHMENT History of total left knee replacement History of total right knee replacement Family History Father Myocardial infarction Aunt Cancer Uncle Cancer Denies family history of Ovarian cancer Prostate cancer Breast cancer Colorectal cancer Social History Smoking Status: Never smoker Second Hand Exposure: No; Do You Dip or Chew Tobacco: No; Hx Alcohol Use: Yes Alcohol type: beer Hx Substance Use: No Preferred Language: Greenlandic Communication Ability: Effective Visual Impairment: No Limitations Jig Bore Operator Required: No Beliefs That Will Affect Care: None marital status: Single Current Living Situation: Other Current Living Situation Comment: FRIEND current occupational status: employed current occupation: Self employeed How many Children do You have: 3 Feels Safe at Home: Yes Childhood Exposure to Second-Hand Smoke: Yes Diet: regular caffeine: Yes Dental Care, Regularly: No Physical Activity Frequency: Daily Seatbelt Use: never Sunscreen Use: No Assistive Devices: Contacts and Glasses Physical Exam Vital Signs Vital Signs - 24 hr 08/31/22 13:37 08/31/22 16:08 08/31/22 18:41 Temperature 36.6 C Temperature Source Temporal Artery Scan Pulse Rate 84 Pulse Rate [Right Finger] 77 65 Pulse Rhythm [Right Finger] Regular Regular Respiratory Rate 16 18 18 Respiratory Effort / Characteristics Non-Labored Spontaneous Non-Labored Spontaneous Non-Labored Spontaneous Respiratory Depth Normal Normal Normal Respiratory Pattern Regular Regular Blood Pressure 137/87 Blood Pressure [Right Arm] 137/93 136/80 Blood Pressure Mean 103 Blood Pressure Mean [Right Arm] 107 98 Blood Pressure Position [Right Arm] Lying Pulse Oximetry 99 100 99 Oxygen Delivery Method Room Air Room Air Room Air Sepsis Recent Fever Within 48 Hours No Sepsis New/Unexplained Change in Mental Status No Sepsis Action Taken by Nursing No Action Required VITALS: Vitals are noted on the nurse's note and reviewed by myself. GENERAL: This is a 61-year-old male, in no acute distress, well-developed well- nourished. SKIN: The skin was without rashes. EYES: No scleral icterus. HEART: Regular rate and rhythm without murmurs gallops or rubs. LUNGS: Clear to auscultation bilaterally without wheezes, rales or rhonchi. No retractions or accessory muscle use. ABDOMEN: Positive bowel sounds x 4. Soft, moderate tenderness in the right lower quadrant. No guarding or rebound tenderness. NEURO: Patient was alert and oriented to person place and time. Course Administered Medications Discontinued Medications Ioversol (Optiray 320 100ml) 90 ml IV ONCE ONE Stop: 08/31/22 16:31 Last Admin: 08/31/22 16:30 Dose: 90 ml Documented By: AMADEO Medical Decision Making Differential Diagnosis Appendicitis, testicular torsion, infections, diverticulitis, UTI, obstruction, mesenteric ischemia, aortic pathology, inflammatory bowel disease, renal colic, PUD, pancreatitis, biliary pathology, hernia, volvulus, constipation, as well as other pathologies. Home Medications was personally reviewed by me Laboratory Data Attestation: I reviewed the patient's lab results. 08/31/22 14:30 07/26/23 14:30 Lab Results 08/31/22 08/31/22 08/31/22 Range/Units 14:30 14:30 18:43 WBC 6.24 (4.8-10.8) K/ul RBC 4.50 L (4.70-6.10) M/uL Hgb 14.6 (14.0-18.0) g/dl Hct 41.6 L (42.0-52.0) % MCV 92.4 (80.0-100.0) fL MCH 32.4 (25.0-34.0) pg MCHC 35.1 (32.0-36.0) g/dL RDW Std Deviation 40.5 (36.4-46.3) fL RDW Coeff of Lori 11.9 (11.5-14.5) % Plt Count 206 (130-400) K/uL MPV 9.8 (9.4-12.4) fL Immature Gran % (Auto) 0.2 % Neut % (Auto) 71.1 % Lymph % (Auto) 19.4 % Drew % (Auto) 7.7 % Eos % (Auto) 1.3 % Baso % (Auto) 0.3 % Neut # (Auto) 4.44 (1.40-6.50) K/uL Lymph # (Auto) 1.21 (1.2-3.4) K/uL Drew # (Auto) 0.48 (0.11-0.59) K/uL Eos # (Auto) 0.08 (0-0.50) K/uL Baso # (Auto) 0.02 (0-0.2) K/uL Immature Gran # (Auto) 0.01 (0.01-0.20) K/uL Sodium 134 L (136-145) mmol/L Potassium 4.2 (3.5-5.1) mmol/L Chloride 102 (98-107) mmol/L Carbon Dioxide 24 (21-32) mmol/L Anion Gap 8 (3-11) BUN 9 (6-23) mg/dl Creatinine 0.86 (0.6-1.4) mg/dl Est Cr Clr Drug Dosing 108.8 ml/min Est GFR ( Amer) 108.5 ml/min Est GFR (Non-Af Amer) 93.6 ml/min BUN/Creatinine Ratio 10.5 (10-20) Glucose 83 (70-99(Fasting)) mg/dl Calcium 10.0 (8.6-10.3) mg/dl Total Bilirubin 0.6 (0.2-1.0) mg/dl AST 42 H (13-39) U/L ALT 48 (7-52) U/L Alkaline Phosphatase 66 (34-104) U/L Total Protein 8.3 (6.0-8.3) gm/dl Albumin 5.2 H (3.4-5.0) gm/dl Globulin 3.1 (2.5-4.0) gm/dl Albumin/Globulin Ratio 1.7 (0.9-2) Lipase 39 (11-82) U/L Urine Color Yellow Urine Appearance Clear (Clear) Urine pH 5.5 (4.5-7.5) Ur Specific [place] 1.006 (1.000-1.030) Urine Protein Negative (Negative) Urine Glucose (UA) Negative (Negative) Urine Ketones 1+ H (Negative) Urine Blood Negative (Negative) Urine Nitrite Negative (Negative) Urine Bilirubin Negative (Negative) Urine Urobilinogen Negative (Negative) Ur Leukocyte Esterase Negative (Negative) Imaging Data Attestation: I personally reviewed and interpreted this imaging study as follo ws: Radiologist's Impression: Gallbladder Ultrasound 08/31/22 13:40 ABDOMINAL ULTRASOUND, RIGHT UPPER QUADRANT HISTORY: Right upper quadrant pain.. COMPARISON: Abdomen and pelvis CT 01/10/2018. FINDINGS: Pancreas: The visualized pancreas demonstrates a normal echotexture. Liver: The liver is echogenic consistent with fatty change. 17 cm in length. The main portal vein is patent. Gallbladder: No gallbladder wall thickening. No gallstones. A 3 mm gallbladder polyp. CBD: 4 mm. Right kidney: No hydronephrosis. IMPRESSION: 1. No gallbladder wall thickening. No gallstones. 2. A 3 mm gallbladder polyp. 3. Hepatic steatosis. ACT 112: Negative or not required by law. Electronically signed by: Can Holder M.D. 08/31/2022 3:58 PM Abdomen/Pelvis CT 08/31/22 15:[address] WITH IV CONTRAST CT DOSE: 1429.01 mGy.cm HISTORY: Acute right lower quadrant abdominal pain rlq pain TECHNIQUE: Multiaxial CT images of the abdomen and pelvis were performed following the IV administration of 90 cc of Optiray, A dose lowering technique was utilized adhering to the principles of ALARA. COMPARISON STUDY: 01/10/2018 FINDINGS: Moderate coronary artery calcifications. Clear lung bases. No pneumatosis or pneumoperitoneum. Spleen is enlarged, 15.5 cm. Unremarkable pancreas, adrenal glands, gallbladder and liver. Patency of the hepatic and portal veins. Unremarkable kidneys. No hydronephrosis. Moderate urinary bladder wall thickening with partial distention. Prostatomegaly. No abdominal aortic aneurysm. No lymphadenopathy. No bowel obstruction or bowel wall thickening. Colonic diverticulosis with partial sigmoid colon resection and colon colonic anastomosis. [id number] fecal retention. Dilated and inflamed appendix, 10 mm with probable associated appendicolith. No abscess. No acute fracture. IMPRESSION: 1. Acute uncomplicated appendicitis. 2. No pneumoperitoneum or fluid collections. 3. No bowel obstruction. 4. Splenomegaly. 5. Additional findings as above. ACT 112: Negative or not required by law. The above report was generated using voice recognition software. It may contain grammatical, syntax or spelling errors. Electronically signed by: Fran Lambert M.D. 08/31/2022 4:39 PM MDM Narrative This patient is a 61-year-old male who presents to the emergency department for evaluation of right lower quadrant abdominal pain. Labs revealed no le ukocytosis, anemia or concerning electrolyte abnormalities. Urinalysis not suggestive of infection. CT shows evidence of appendicitis. General surgery consulted and evaluated the patient. They will admit for further care and OR tomorrow. Impression Appendicitis Discharge Plan Visit Data Chief Complaint: Abdominal Pain Stated Complaint: REF BY DOC; ABDOMINAL PAIN ED Provider: Obi Patel ED Midlevel Provider: Diane Zhou Discharge Problem: Appendicitis Forms Stand Alone Forms: [employer] Prescriptions Prescriptions: No Action multivitamin [Multiple Vitamins] Tablet 1 tab PO QAM Referrals Referrals: Obed Jones DO [Primary Care Provider] -
[2022-08-31] MEDS ORDERED: OPTIRAY 320 100ml IV ONE (16:30)
--- NOTE | 2022-08-31 16:41 | CT Scan Report ---
ABDOMEN AND PELVIS CT WITH IV CONTRAST CT DOSE: 1429.01 mGy.cm HISTORY: Acute right lower quadrant abdominal pain rlq pain TECHNIQUE: Multiaxial CT images of the abdomen and pelvis were performed following the IV administrat ion of 90 cc of Optiray, A dose lowering technique was utilized adhering to the principles of ALARA. COMPARISON STUDY: 01/10/2018 FINDINGS: Moderate coronary artery calcifications. Clear lung bases. No pneumatosis or pneumoperitone um. Spleen is enlarged, 15.5 cm. Unremarkable pancreas, adrenal glands, gallbladder and liver. Patenc y of the hepatic and portal veins. Unremarkable kidneys. No hydronephrosis. Moderate urinary bladder wall thickening with partial distention. Prostatomegaly. No abdominal aortic aneurysm. No lymphadenop athy. No bowel obstruction or bowel wall thickening. Colonic diverticulosis with partial sigmoid colon rese ction and colon colonic anastomosis. Jazo-[id number] fecal retention. Dilated and inflamed appendix, 10 mm with probable associated appendicolith. No abscess. No acute fracture. IMPRESSION: 1. Acute uncomplicated appendicitis. 2. No pneumoperitoneum or fluid collections. 3. No bowel obstruction. 4. Splenomegaly. 5. Additional findings as above. ACT 112: Negative or not required by law. The above report was generated using voice recognition software. It may contain grammatical, syntax o r spelling errors. Electronically signed by: Fran Lambert M.D. 08/31/2022 4:39 PM
--- NOTE | 2022-08-31 18:07 | Surgery Consultation ---
Date of Consultation August 31, 2022 Assessment & Plan (1) Chronic appendicitis: Assessment: Patient is a 61 years old gentleman, who presented to the ED with a 2-3 week history intermittent right lower quadrant pain with some nausea no vomiting. CT scan-IMPRESSION: 1. Acute uncomplicated appendicitis. 2. No pneumoperitoneum or fluid collections. 3. No bowel obstruction. 4. Splenomegaly. 5. Additional findings as above. IMP: chronic/acute appendicitis. plan, based on pt's H/P. labs and CT scan finding. pt had a lot water intake 4 hours ago, I recommend to admit to hospital , iv antibiotic, control pain, NPO, iv fluid resuscitation then do laparoscopic appendectomy, possible, open, discussion with the patient the benefits the risk and alternatives of the procedure. I indicated the risks may include but not limited to such as bleeding, infection, abscess, injury other organs, incisional hernia, bowel obstruction. patient understood. he signed informed consent. he agreed with the treatment plan. I answered all question. D/W ER attending. History of Present Illness Reason for Consultation: appendicitis Requesting Physician: Abelardo Contreras PA History of Present Illness CC; abdominal pain. HPI: Patient is a 61 years old gentleman, who presented to the ED with a 2-3 week history intermittent right lower quadrant pain with some nausea no vomiting. patient denies any fever. the pain is located the right lower quadrant and there is a intermittent diarrhea. Patient fell multiple right lower quadrant pain today, and patient come to the ER. Patient had a colon resection for diverticulitis in the past. Patient had a CT scan shows appendicitis. Patient WBC is 6.2 normal. Patient has drink a lot of water about 3 to 4 hours ago. Allergies Allergy/AdvReac Type Severity Reaction Status Date / Time No Known Allergies Allergy Verified 08/31/22 12:31 Home Medications Medication Instructions Recorded Confirmed Type multivitamin (Multiple Vitamins 1 tab PO QAM 02/28/18 08/31/22 History tablet) Patient History Medical History Acid reflux DIETARY CONTROLLED/NO MEDS Diverticular disease MULTIPLE INECTIONS; BOWEL RESECTION History of COVID-19 ?2021- FEVER, [place]EVIL[place], FATIGUE; RESOLVED History of shingles 2019 Surgical History History of bowel resection History of colonoscopy History of surgery on arm LEFT BICEP RE ATTACHMENT History of total left knee replacement History of total right knee replacement Family History Father Myocardial infarction Aunt Cancer Uncle Cancer Denies family history of Ovarian cancer Prostate cancer Breast cancer Colorectal cancer Social History Smoking Status: Never smoker Second Hand Exposure: No; Do You Dip or Chew Tobacco: No; Hx Alcohol Use: Yes Alcohol type: beer Hx Substance Use: No Preferred Language: Urdu Communication Ability: Effective Visual Impairment: No Limitations Mold Mover Required: No Beliefs That Will Affect Care: None marital status: Single Current Living Situation: Other Current Living Situation Comment: FRIEND current occupational status: employed current occupation: Self employeed How many Children do You have: 3 Feels Safe at Home: Yes Childhood Exposure to Second-Hand Smoke: Yes Diet: regular caffeine: Yes Dental Care, Regularly: No Physical Activity Frequency: Daily Seatbelt Use: never Sunscreen Use: No Assistive Devices: Contacts and Glasses Review of Systems Constitutional: as per Subjective / HPI Eyes: as per Subjective / HPI Respiratory: as per Subjective / HPI Cardiovascular: as per Subjective / HPI Gastrointestinal: abdominal pain, colectomy Genitourinary: + as per Subjective / HPI Musculoskeletal: bilateral knee repacement Neurologic: as per Subjective / HPI Psychiatric: as per Subjective / HPI Endocrine: as per Subjective / HPI Hematologic / Lymphatic: as per Subjective / HPI Physical Exam Constitutional: WD/WN, vitals as above Eyes: PERRL, conjunctivae normal, anicteric sclerae Neck: trachea midline, no thyromegaly Respiratory: normal respiratory effort, lungs clear to auscultation Cardiovascular: RRR, no murmur, no edema Gastrointestinal (Abdomen): incision scar at middle line. mild tenderness at RLQ, no rebound pain, no distend, BS +. Musculoskeletal: no cyanosis or clubbing, extremities motor strength 5/5 Neurologic: patellar DTR's 2+ bilat, sensation intact Psychiatric: A+Ox3, euthymic affect Results & Data Vital Signs (Past 12 Hours) Vital Signs Temp Pulse Pulse Resp BP BP Pulse Ox 08/31/22 16:08 77 18 137/93 100 08/31/22 13:37 36.6 C 84 16 137/87 99 O2 Del Method 08/31/22 16:08 Room Air 08/31/22 13:37 Room Air Laboratory Results Lab Results 08/31/22 08/31/22 Range/Units 14:30 14:30 WBC 6.24 (4.8-10.8) K/ul RBC 4.50 L (4.70-6.10) M/uL Hgb 14.6 (14.0-18.0) g/dl Hct 41.6 L (42.0-52.0) % MCV 92.4 (80.0-100.0) fL MCH 32.4 (25.0-34.0) pg MCHC 35.1 (32.0-36.0) g/dL RDW Std Deviation 40.5 (36.4-46.3) fL RDW Coeff of Lori 11.9 (11.5-14.5) % Plt Count 206 (130-400) K/uL MPV 9.8 (9.4-12.4) fL Immature Gran % (Auto) 0.2 % Neut % (Auto) 71.1 % Lymph % (Auto) 19.4 % [place] % (Auto) 7.7 % Eos % (Auto) 1.3 % Baso % (Auto) 0.3 % Neut # (Auto) 4.44 (1.40-6.50) K/uL Lymph # (Auto) 1.21 (1.2-3.4) K/uL [place] # (Auto) 0.48 (0.11-0.59) K/uL Eos # (Auto) 0.08 (0-0.50) K/uL Baso # (Auto) 0.02 (0-0.2) K/uL Immature Gran # (Auto) 0.01 (0.01-0.20) K/uL Sodium 134 L (136-145) mmol/L Potassium 4.2 (3.5-5.1) mmol/L Chloride 102 (98-107) mmol/L Carbon Dioxide 24 (21-32) mmol/L Anion Gap 8 (3-11) BUN 9 (6-23) mg/dl Creatinine 0.86 (0.6-1.4) mg/dl Est Cr Clr Drug Dosing 108.8 ml/min Est GFR ( Amer) 108.5 ml/min Est GFR (Non-Af Amer) 93.6 ml/min BUN/Creatinine Ratio 10.5 (10-20) Glucose 83 (70-99(Fasting)) mg/dl Calcium 10.0 (8.6-10.3) mg/dl Total Bilirubin 0.6 (0.2-1.0) mg/dl AST 42 H (13-39) U/L ALT 48 (7-52) U/L Alkaline Phosphatase 66 (34-104) U/L Total Protein 8.3 (6.0-8.3) gm/dl Albumin 5.2 H (3.4-5.0) gm/dl Globulin 3.1 (2.5-4.0) gm/dl Albumin/Globulin Ratio 1.7 (0.9-2) Lipase 39 (11-82) U/L Diagnostic Findings ABDOMEN AND PELVIS CT WITH IV CONTRAST CT DOSE: 1429.01 mGy.cm HISTORY: Acute right lower quadrant abdominal pain rlq pain TECHNIQUE: Multiaxial CT images of the abdomen and pelvis were performed following the IV administration of 90 cc of Optiray, A dose lowering technique was utilized adhering to the principles of ALARA. COMPARISON STUDY: 01/10/2018 FINDINGS: Moderate coronary artery calcifications. Clear lung bases. No pneumatosis or pneumoperitoneum. Spleen is enlarged, 15.5 cm. Unremarkable pancreas, adrenal glands, gallbladder and liver. Patency of the hepatic and portal veins. Unremarkable kidneys. No hydronephrosis. Moderate urinary bladder wall thickening with partial distention. Prostatomegaly. No abdominal aortic aneurysm. No lymphadenopathy. No bowel obstruction or bowel wall thickening. Colonic diverticulosis with partial sigmoid colon resection and colon colonic anastomosis. Cngs-[id number] fecal retention. Dilated and inflamed appendix, 10 mm with probable associated appendicolith. No abscess. No acute fracture.
[2022-08-31 18:54] LABS: Appearance Urine Clear (Clear); Bilirubin Urine Negative (Negative); Blood Urine Negative (Negative); Color Urine Yellow; Glucose Urine UA Negative (Negative); Ketones Urine 1+ (Negative); Leukocyte Esterase Urine Negative (Negative); Nitrite Urine Negative (Negative); Protein Urine Negative (Negative); Specific Gravity Urine 1.006 (1.000-1.030); Urobilinogen Urine Negative (Negative); pH Urine 5.5 (4.5-7.5)
[2022-08-31] MEDS ORDERED: MoRPHine SULFATE 2 MG/ML CARP IV PRN (21:00)
[2022-08-31] MEDS ORDERED: MoRPHine SULFATE 4 MG/ML 1 ML CARP\\VIAL IV PRN (21:00)
[2022-08-31] MEDS ORDERED: ONDANSETRON INJ 2 MG/ML 2 ML VIAL IV PRN (21:00)
[2022-08-31] MEDS: LACTATED RINGER'S 1,000 ML IV SCH (21:15)
[2022-08-31] MEDS: cefOXitin 2,000 MG in DEXTROSE 5% 50 ML IV SCH (22:36)
[2022-09-01] MEDS: cefOXitin 2,000 MG in DEXTROSE 5% 50 ML IV SCH ×4 (03:45→22:38)
[2022-09-01 07:15] LABS: Basophils # (auto) 0.03 K/uL (0-0.2); Basophils % (auto) 0.7 %; Eosinophils # (auto) 0.18 K/uL (0-0.50); Eosinophils % (auto) 4.1 %; Hematocrit (blood only) 42.2 % (42.0-52.0); Hemoglobin 14.9 g/dl (14.0-18.0); Immature Granulocytes # (auto) 0.01 K/uL (0.01-0.20); Immature Granulocytes % (auto) 0.2 %; Lymphocytes # (auto) 1.13 K/uL (1.2-3.4); Lymphocytes % (auto) 25.6 %; Mean Corpuscular Hemoglobin 32.5 pg (25.0-34.0); Mean Corpuscular Hgb Conc 35.3 g/dL (32.0-36.0); Mean Corpuscular Volume 92.1 fL (80.0-100.0); Mean Platelet Volume 9.9 fL (9.4-12.4); Monocytes # (auto) 0.53 K/uL (0.11-0.59); Neutrophils # (auto) 2.53 K/uL (1.40-6.50); Neutrophils % (auto) 57.4 %; Platelet Count 215 K/uL (130-400); RDW Standard Deviation 40.9 fL (36.4-46.3); Red Blood Count 4.58 M/uL (4.70-6.10); White Blood Count 4.41 K/ul (4.8-10.8)
[2022-09-01] MEDS: LACTATED RINGER'S 1,000 ML IV SCH ×3 (07:15→22:38)
[2022-09-01 07:29] LABS: Albumin Globulin Ratio 1.5 (0.9-2); Albumin Level 4.6 gm/dl (3.4-5.0); BUN Creatinine Ratio 10.1 (10-20); Bilirubin,Total 0.8 mg/dl (0.2-1.0); Creatinine Clr Calc Pharmacy 117.8 ml/min; Est GFR (African American) 112.3 ml/min; Est GFR (Non-African American) 96.9 ml/min; Globulin 3.1 gm/dl (2.5-4.0); Potassium 4.3 mmol/L (3.5-5.1); Total Protein 7.7 gm/dl (6.0-8.3)
--- NOTE | 2022-09-01 07:47 | Anesthesiology Consultation ---
Date of Service September 01, 2022 Assessment & Plan Chart Review Chart Review: Acceptable Risk for Surgery and Patient NOT seen in Pre Admission Testing Consults Requested none History Surgery Operation Date: 09/01/22 07:00 Proposed Procedures p Laparoscopic Appendectomy - Parviz Pardo MD Height/Weight Height: 5 ft 11 in Weight: 99.1 kg Allergies Allergy/AdvReac Type Severity Reaction Status Date / Time No Known Allergies Allergy Verified 08/31/22 12:31 Medications Home Medications Medication Instructions Recorded Confirmed Last Taken multivitamin (Multiple Vitamins 1 tab PO QAM 02/28/18 08/31/22 08/31/22 tablet) Active Medications Generic Name Dose Route Start Last Admin Trade Name Freq PRN Reason Stop Dose Admin Lactated Ringer's 1,000 mls @ 100 mls/hr 08/31/22 21:00 09/01/22 07:15 Lr IV 09/30/22 20:59 100 mls/hr .Q10H [place] Administration Cefoxitin Sodium 2,000 mg/ 60 mls @ 100 mls/hr 08/31/22 22:00 09/01/22 04:23 Dextrose IV 09/10/22 21:59 Infused Q6H CH[place] Infusion Protocol Past Medical History Medical History Acid reflux DIETARY CONTROLLED/NO MEDS Diverticular disease MULTIPLE INECTIONS; BOWEL RESECTION History of COVID-19 ?2021- FEVER, [place], FATIGUE; RESOLVED History of shingles 2018 Past Family History Family History Father Myocardial infarction Aunt Cancer Uncle Cancer Denies family history of Ovarian cancer Prostate cancer Breast cancer Colorectal cancer Past Surgical History Surgical History History of bowel resection History of colonoscopy History of surgery on arm LEFT BICEP RE ATTACHMENT History of total left knee replacement History of total right knee replacement Social History Smoking Status: Never smoker Do You Dip or Chew Tobacco: No Hx Alcohol Use: Yes Alcohol type: beer alcohol intake frequency: 3 or more drinks per day Alcohol Intake Frequency Comment: No alcohol for 20 days Hx Substance Use: No substance use type: does not use Physical Exam Vital Signs Last Vital Signs Temp 36.7 C 09/01/22 07:42 Pulse 74 09/01/22 07:42 Resp 16 09/01/22 07:42 BP 137/84 09/01/22 07:42 Pulse Ox 100 09/01/22 07:42 O2 Del Method Room Air 09/01/22 07:42 Testing Laboratory Results 09/01/22 06:25 09/01/22 06:25 Urine Color Yellow 08/31/22 18:43 Urine Appearance Clear (Clear) 08/31/22 18:43 Urine pH 5.5 (4.5-7.5) 08/31/22 18:43 Ur Specific [place] 1.006 (1.000-1.030) 08/31/22 18:43 Urine Protein Negative (Negative) 08/31/22 18:43 Urine Glucose (UA) Negative (Negative) 08/31/22 18:43 Urine Ketones 1+ (Negative) H 08/31/22 18:43 Urine Nitrite Negative (Negative) 08/31/22 18:43 Ur Leukocyte Esterase Negative (Negative) 08/31/22 18:43
--- NOTE | 2022-09-01 09:22 | History & Physical Bridge Note ---
Date of Service September 01, 2022 History & Physical Bridge Note I have examined the patient, reviewed the History & Physical and in the interval since the performance of the History & Physical I have noted the following changes of clinical significance: no changes noted
[2022-09-01] MEDS ORDERED: fentaNYL citrate PF 100 MCG/2 ML VIAL ONE ×2 (11:24)
[2022-09-01] MEDS ORDERED: MIDAZOLAM HCL 1 MG/ML 2ML VIAL ONE (11:24)
[2022-09-01] MEDS ORDERED: BUPIVACAINE 0.5 % 5 MG/1 ML MPF 30ML VIAL ONE (12:06)
[2022-09-01] MEDS ORDERED: BACITRACIN OINT 14 GM TUBE ONE (12:06)
[2022-09-01] MEDS ORDERED: LIDOCAINE 1% LOCAL 20 ML VIAL ONE (12:06)
[2022-09-01] MEDS ORDERED: ATROPINE SULFATE 0.1 MG/ML 10ML SYR IV PRN (12:10)
[2022-09-01] MEDS ORDERED: ePHEDrine sulfate 50 MG/ML AMP IV PRN (12:10)
[2022-09-01] MEDS ORDERED: fentaNYL citrate PF 100 MCG/2 ML VIAL IV PRN (12:10)
[2022-09-01] MEDS ORDERED: PROMETHAZINE HCL 12.5 MG in SODIUM CHLORIDE 0.9% 50 ML IV PRN (12:10)
[2022-09-01] MEDS ORDERED: ONDANSETRON INJ 2 MG/ML 2 ML VIAL IV PRN (12:10)
[2022-09-01] MEDS ORDERED: HYDROmorphone INJ 2 MG/ML SYR/VIAL IV PRN (12:10)
[2022-09-01] MEDS ORDERED: SUCCINYLCHOLINE CHLORIDE 20 MG/ML 10 ML VIAL IV ONE (12:29)
[2022-09-01] MEDS ORDERED: DEXAMETHASONE SOD INJ 4 MG/ML VIAL ONE (12:29)
[2022-09-01] MEDS ORDERED: ONDANSETRON INJ 2 MG/ML 2 ML VIAL ONE (12:29)
[2022-09-01] MEDS ORDERED: GLYCOPYRROLATE 0.2 MG/ML VIAL ONE (12:29)
[2022-09-01] MEDS ORDERED: ROCURONIUM BROMIDE 10 MG/ML 5 ML VIAL IV ONE (12:29)
[2022-09-01] MEDS ORDERED: SUGAMMADEX SODIUM 200 MG/2 ML VIAL IV ONE (12:29)
--- NOTE | 2022-09-01 13:06 | Post Operative Brief Note ---
Immediate Post Op Note v1 Date of Surgery September 01, 2022 Pre & Post Diagnosis Operation Date: 09/01/22 07:00 Pre-Op Diagnosis: Acute appendicitis Post-Op Diagnosis: Acute appendicitis I identified the patient and participated in the time-out.: Yes Procedure Operation Date: 09/01/22 07:00 Actual Procedures p Laparoscopic Appendectomy - Parviz Pardo MD Surgeon Parviz Pardo MD Analyzer Sales EDIS [place] Estimated Blood Loss 10 Findings Consistent with Post-Op Diagnosis acute appendicitis Fluids 800ml Specimens appendix Drains Harden Catheter (inserted by Alesha Quiroz) Anesthesia Type General Complications none Disposition Accompanied Patient To Recovery: Yes
--- NOTE | 2022-09-01 13:18 | Operative Report ---
Post Operative Report Pre & Post Diagnosis Operation Date: 09/01/22 07:00 Pre-Op Diagnosis: Acute appendicitis Post-Op Diagnosis: Acute appendicitis I identified the patient and participated in the time-out.: Yes Procedure Operation Date: 09/01/22 07:00 Actual Procedures p Laparoscopic Appendectomy(Not Applicable) - Parviz Pardo MD Surgeon Parviz Pardo MD Auricular Detoxification Specialist EDIS [place] Estimated Blood Loss 10 Findings Consistent with Post-Op Diagnosis acute appendicitis Fluids 800ml Specimens appendix Anesthesia Type General Complications none Disposition Accompanied Patient To Recovery: Yes Indications Patient is a 61 years old gentleman who was admitted to the hospital for acute appendicitis. I recommend to do a laparoscopy appendectomy possible open. I did talk to patient about benefits, risks and alternatives of the procedure, risks may include but not limited to such as bleeding, infection, abscess, injury or other organs, incisional hernia, and bowel obstruction patient understood, he signed informed consent. I answered all questions. Description of Procedure After identified patient to verify procedure, we brought patient to the OR and put the patient on the supine position on the OR table. Patient received a SCD on bilateral legs to prevent DVT. Patient received 1 g cefoxitin IV for prophylactic antibiotic. Patient received general anesthesia without difficulty. The abdomen was propped and dropped in routine fashion. After timeout, I injections of local anesthesia by using 1% lidocaine mixed with 0.5% Marcaine around umbilical area. Make a small transverse incision just above the umbilical. Dissection subcutaneous layer reaches the fascial layer open peritoneal layer in the direct region. Inserted a Martin trocar in contact to CO2 to create pneumoperitoneum for low rate is a 6 L/min pressure no more than 14 mmHg. Once we get a nice pneumoperitoneum we put the camera in and look around the abdomen. Showing acute appendicitis, no perforation. Normal finding on the small bowel large bowel. The put another two 5 mm trocar on the left lower quadrant area. We used a harmonic to take down the appendiceal. Once identified the base of the appendix. The use 45 mm Endo ALISIA staple transection of the base of appendix. Recheck at the staple line intact no active bleeding. Remove appendix through the patch back. There is a very inserted Martin trocar and connected to CO2 to create pneumoperitoneum again look around the abdomen, staple line intact no leak no active bleeding, then we removed all trocars under direct vision no active bleeding from trocar site, pneumoperitoneum was released. Close umbilical incision fascia layer by using 0 Vicryl [id number] x2 closed subcutaneous layer with 2-0 Vicryl interrupted, close skin by using 4-0 Vicryl continuous running close another two 5-minute trocar site the skin only by use of 4-0 Vicryl and put dressing on, the patient tolerated procedure well. all instrument needle sponge count correct x2 in the case. patient was transferred to recovery room in stable condition. the specimen sent to pathology. After procedure I did talk to patient about the OR finding procedure we did. patient understood. the heel sprayer first Latasha is necessary for this procedure, her roles are holding the camera, retraction and exposure. thank you I attest to the content of the Intraoperative Record and any orders documented therein. Any exceptions are noted below. I attest to the content of the Intraoperative Record and any orders documented therein. Any exceptions are noted below.
--- NOTE | 2022-09-01 14:26 | Anesthesiology Progress Note ---
Date of Service September 01, 2022 Anesthesia Post Procedure Vital Signs Vital Signs: Temp Pulse Pulse Pulse Resp BP Pulse Ox 09/01/22 14:22 36.6 C 79 18 162/89 H 96 09/01/22 14:10 79 15 150/79 H 95 09/01/22 14:00 36.1 C L 75 18 154/77 H 94 09/01/22 13:50 82 14 153/90 H 96 09/01/22 13:40 78 20 144/88 H 99 09/01/22 13:30 83 13 154/77 H 99 09/01/22 13:23 36.4 C L 87 14 145/77 H 100 09/01/22 10:22 37 C 78 18 160/85 H 100 09/01/22 07:42 36.7 C 74 16 137/84 100 08/31/22 21:05 36.5 C 65 18 156/91 H 98 08/31/22 20:20 36.5 C 65 18 156/91 H 98 08/31/22 20:13 08/31/22 18:41 65 18 136/80 99 08/31/22 16:08 77 18 137/93 100 O2 Del Method O2 Flow Rate 09/01/22 14:22 Room Air 09/01/22 14:10 Room Air 09/01/22 14:00 Room Air 09/01/22 13:50 Room Air 09/01/22 13:40 Room Air 09/01/22 13:30 Oxymask 2 09/01/22 13:23 Oxymask 6 09/01/22 10:22 Room Air 09/01/22 07:42 Room Air 08/31/22 21:05 Room Air 08/31/22 20:20 Room Air 08/31/22 20:13 Room Air 08/31/22 18:41 Room Air 08/31/22 16:08 Room Air Pain Intensity Right Abdomen: Pain Intensity: 3 Abdomen: Pain Intensity: 2 Transfer of Care Handoff Completed per policy Notes Mental Status: alert / awake / arousable Patient Amnestic to Procedure: Yes Nausea / Vomiting: adequately controlled Pain: adequately controlled Airway Patency, RR, SpO2: stable & adequate BP & HR: stable & adequate Hydration State: stable & adequate Anesthetic Complications: no major complications apparent
[2022-09-01] MEDS: oxyCODONE/ACETAMINOPHEN 5mg/325mg TAB PO PRN (19:34)
[2022-09-02] MEDS: cefOXitin 2,000 MG in DEXTROSE 5% 50 ML IV SCH ×2 (04:28→09:56)
[2022-09-02] MEDS ORDERED: MULTIVITAMIN TAB PO SCH (09:00)
[2022-09-02 09:37] LABS: Basophils # (auto) 0.02 K/uL (0-0.2); Basophils % (auto) 0.3 %; Eosinophils # (auto) 0.06 K/uL (0-0.50); Eosinophils % (auto) 0.9 %; Hematocrit (blood only) 41.4 % (42.0-52.0); Hemoglobin 14.6 g/dl (14.0-18.0); Immature Granulocytes # (auto) 0.01 K/uL (0.01-0.20); Immature Granulocytes % (auto) 0.2 %; Lymphocytes # (auto) 1.34 K/uL (1.2-3.4); Lymphocytes % (auto) 21.1 %; Mean Corpuscular Hemoglobin 32.7 pg (25.0-34.0); Mean Corpuscular Hgb Conc 35.3 g/dL (32.0-36.0); Mean Corpuscular Volume 92.6 fL (80.0-100.0); Mean Platelet Volume 10.9 fL (9.4-12.4); Monocytes # (auto) 0.46 K/uL (0.11-0.59); Monocytes % (auto) 7.2 %; Neutrophils # (auto) 4.46 K/uL (1.40-6.50); Neutrophils % (auto) 70.3 %; Platelet Count 261 K/uL (130-400); RDW Coefficient of Variation 11.9 % (11.5-14.5); RDW Standard Deviation 40.5 fL (36.4-46.3); Red Blood Count 4.47 M/uL (4.70-6.10); White Blood Count 6.35 K/ul (4.8-10.8)
[2022-09-02] MEDS: oxyCODONE/ACETAMINOPHEN 5mg/325mg TAB PO PRN (09:57)
--- NOTE | 2022-09-02 11:26 | Discharge Summary ---
Date of Service September 02, 2022 Admission HPI Per Admitting Provider HPI: Patient is a 61 years old gentleman, who presented to the ED with a 2-3 week history intermittent right lower quadrant pain with some nausea no vomiting. patient denies any fever. the pain is located the right lower quadrant and there is a intermittent diarrhea. Patient fell multiple right lower quadrant pain today, and patient come to the ER. Patient had a colon resection for diverticulitis in the past. Patient had a CT scan shows appendicitis. Patient WBC is 6.2 normal. Patient has drink a lot of water about 3 to 4 hours ago. Principal Diagnosis acute on chronic appendicitis Discharge Exam Constitutional WD/WN, vitals as above cooperative and comfortable; no acute distress, not ill appearing and not diaphoretic Respiratory normal respiratory effort; no respiratory distress Gastrointestinal (Abdomen) Inspection/Auscultation: abdomen normal to inspection and + abdominal surgical incision (covered with clean/dry/intact dressings); abdomen not distended Percussion/Palpation: + abdomen tender (mild at incision sites appropriate postop ) and abdomen soft; no guarding, abdomen not rigid and abdomen not firm Skin no rashes, warm and dry Psychiatric A+Ox3, euthymic affect Discharge Data Allergies Allergy/AdvReac Type Severity Reaction Status Date / Time No Known Allergies Allergy Verified 09/01/22 10:22 Procedures Performed Operation Date: 09/01/22 07:00 Actual Procedures p Laparoscopic Appendectomy(Not Applicable) - Parviz Pardo MD Ordered Studies 08/31/22 13:40 US gallbladder Stat 08/31/22 15:55 CT Abd and Pelvis [CT abd pelvis IV con only] Stat Hospital Course (1) Chronic appendicitis: Patient admitted to hospital to med/surg floor from emergency room and started on IV cefoxitin. He was taken to operating room next day for laparoscopic appendectomy. Patient found to have acute appendicitis without perforation or rupture. He was transferred back to med/surg floor for postop care in which diet advanced to clear liquids, IV Cefoxitin continued, pain management as needed, and activity as tolerated. POD # 1 , avss, postop pain at incisions mild and controlled, tolerated diet, ambulating and urinating without difficulty. Patient discharged home on POD # 1 in stable condition. Total Time Total Time Spent Total Time Spent (In Minutes): 30 minutes Total Time Includes: Examination of the Patient, Discharge Planning and Medication Reconciliation Discharge Plan Discharge Items Patient Disposition: Home - Self-Care Reason For Visit: VOMITING, LOWER ABDOMINAL PAIN Discharge Diagnosis: Acute appendicitis Activity: Per Instructions section Non-emergency contact: Primary Care Provider Call non-emergency contact if: you have any medication questions, your pain is not controlled, your pain is worsening, your pain is concerning for you, your temperature is above 101, your wound has increased redness and your wound has increased drainage Follow-up/Referrals: Obed Jones DO [Primary Care Provider] - Latasha Foy PA-C [Physician Hand Tile Maker] - Diet: Regular Addtl Attending Provider Instructions: Post-Surgical ~Discharge Instructions Activity Recommendations: - lifting limitation: (15-20 pounds for 4 weeks), - exercise/sex/sports limit: (nonstrenuous for 2 weeks), - driving or machine use limit: (none for 1 week or until pain free and no longer taking narcotic pain medication), - Shower/bathe limit: (may shower beginning Monday, no submerging underwater for 2 weeks) Diet: - Resume previous diet SPECIAL CARE INSTRUCTIONS: - May shower on Monday, sponge bath around incision and wash hair in meantime. On Monday, remove outer dressings and shower. Let water run over area and pat dry. - Leave steri strips on for one week and then remove. They may fall off on their own that is okay. - Call the surgeon's office with any questions or concerns - - (ex. temperature higher than 101 degrees F, excessive bleeding or pain). MEDICATIONS: - Resume previous medications unless instructed otherwise by your surgeon. - May alternate extra strength Tylenol and Ibuprofen as needed for mild to moderate pain -650 mg Tylenol every 6 hours as needed - Ibuprofen 600 mg every 6 hours as needed (Take with food) - Percocet 1 every 6 hours, as needed for severe pain - Recommend daily stool softener (Colace) while taking narcotic pain medication to prevent constipation or straining. Drink plenty of water daily. FOLLOW UP VISIT: - If not already scheduled, please call the office to schedule a two week follow-up appointment. Office number Pending Studies at Discharge: Yes (surgical pathology, will be reviewed at postop visit.) Stand-Alone Forms: [facility], Smoking Cessation Medications and DC Order Prescriptions: New oxycodone-acetaminophen 5-325 mg tablet 1 tab PO Q6H PRN (Reason: pain) Qty: 5 0RF Continued multivitamin [Multiple Vitamins] Tablet 1 tab PO QAM Discharge Orders: Discharge Order (Routine); Ordered 09/02/22 Ordered By: Latasha Foy Admission Data Admit Date/Time: 08/31/22 18:20 Attending Provider: Parviz Pardo Admit Provider: Parviz Pardo Primary Care Provider: Obed Jones
== END 2022-09-02 13:10 | disposition home or self-care (01) ==
LOC: ED 13:19 → 3W 18:20 → INTOOBSV 18:20 → 3W 20:13

== ENCOUNTER 2022-10-09 18:48 | Inpatient (IN) ==
[2022-10-09] MEDS ORDERED: SODIUM CHLORIDE 0.9% 1,000 ML IV STA (18:56)
--- NOTE | 2022-10-09 19:09 | ED Triage Note ---
Date of Service October 09, 2022 History of Present Illness This patient was briefly evaluated while in triage. An abbreviated physical exam was performed. This patient is a 61-year-old Male who presents to the ED for evaluation of worsening left lower abdominal pain and chills. He was diagnosed with div erticulitis several weeks ago, improved about 50%, took another round of Augmentin prescribed by his primary care provider, but over the past few days his symptoms have become much worse. Raymond nauseous but no vomiting. History of recurrent diverticulitis in resulting in partial bowel resection Physical Exam CONSTITUTIONAL: in no acute pain or distress, resting comfortably SKIN: pink, warm, dry CARDIAC: Tachycardic rate and regular rhythm RESPIRATORY: in no respiratory distress, lungs clear to auscultation ABDOMEN: Reproducible left lower abdominal tenderness. Normoactive bowel sounds Initial orders for labs and / or imaging were placed and patient was placed in the waiting area until a bed is available. Please see further documentation for the full ED course.
[2022-10-09 20:09] LABS: Appearance Urine Clear (Clear); Bilirubin Urine Negative (Negative); Blood Urine Negative (Negative); Color Urine Yellow; Glucose Urine UA Negative (Negative); Ketones Urine 2+ (Negative); Leukocyte Esterase Urine Negative (Negative); Nitrite Urine Negative (Negative); Protein Urine Negative (Negative); Specific Gravity Urine 1.006 (1.000-1.030); Urobilinogen Urine Negative (Negative); pH Urine 6.5 (4.5-7.5)
[2022-10-09 20:21] LABS: Basophils # (auto) 0.02 K/uL (0.00-0.20); Basophils % (auto) 0.2 %; Eosinophils # (auto) 0.03 K/uL (0.00-0.50); Eosinophils % (auto) 0.4 %; Hematocrit (blood only) 39.4 % (42.0-52.0); Hemoglobin 13.9 g/dl (14.0-18.0); Immature Granulocytes # (auto) 0.03 K/uL (0.01-0.20); Immature Granulocytes % (auto) 0.4 %; Lymphocytes # (auto) 1.27 K/uL (1.20-3.40); Lymphocytes % (auto) 14.9 %; Mean Corpuscular Hemoglobin 31.5 pg (25.0-34.0); Mean Corpuscular Hgb Conc 35.3 g/dL (32.0-36.0); Mean Corpuscular Volume 89.3 fL (80.0-100.0); Mean Platelet Volume 9.8 fL (9.4-12.4); Monocytes # (auto) 0.75 K/uL (0.11-0.59); Monocytes % (auto) 8.8 %; Neutrophils # (auto) 6.42 K/uL (1.40-6.50); Neutrophils % (auto) 75.3 %; Platelet Count 259 K/uL (130-400); RDW Standard Deviation 39.1 fL (36.4-46.3); Red Blood Count 4.41 M/uL (4.70-6.10); White Blood Count 8.52 K/ul (4.8-10.8)
[2022-10-09 20:28] LABS: Albumin Globulin Ratio 2.2 (0.9-2); Albumin Level 4.8 gm/dl (3.4-5.0); BUN Creatinine Ratio 7.1 (10-20); Bilirubin,Total 1.1 mg/dl (0.2-1.0); Calcium 10.2 mg/dl (8.6-10.3); Creatinine Clr Calc Pharmacy 101.4 ml/min; Est GFR (African American) 109.5 ml/min; Est GFR (Non-African American) 94.5 ml/min; Globulin 2.2 gm/dl (2.5-4.0); Potassium 3.9 mmol/L (3.5-5.1)
[2022-10-09] MEDS ORDERED: OPTIRAY 320 100ml IV ONE (20:43)
--- NOTE | 2022-10-09 21:42 | Emergency Department Note ---
ED Provider Note History of Present Illness Chief Complaint: Abdominal Pain Stated Complaint: ABD PAIN, DIVERTICULITIS Time Seen by Provider: 10/09/22 21:27 Source: patient Mode of arrival: ambulatory Limitations: no limitations This patient is a 61-year-old male who presents to the emergency department for evaluation of worsening abdominal pain. Patient reports that he was here 2 weeks ago and diagnosed with diverticulitis at this time. He was started on antibiotics and completed a course of antibiotics. He followed up with his primary care provider but was not feeling better so he was prescribed an additional course of antibiotics at that time. He has been taking these for the past 4 days with no improvement. He reports associated nausea, diarrhea and occasional chills but denies fevers. He reports that he does have a history of diverticulitis and had several bouts in 2015/2016. He eventually did require a bowel resection and has had no issues since then until the past month. He states that pain is worsened today and is worse with any movement/walking. Home Medications Medication Instructions Recorded Confirmed Type multivitamin (Multiple Vitamins 1 tab PO QAM 02/28/18 10/09/22 History tablet) amoxicillin 875 mg-potassium 1 tab PO TID 10 days #30 tabs 10/06/22 10/09/22 Rx clavulanate 125 mg tablet Allergies Allergy/AdvReac Type Severity Reaction Status Date / Time No Known Allergies Allergy Verified 10/09/22 21:51 Past Med/Surg History Medical History (Updated 10/10/22 @ 05:21 by Diane Sharma PA-C) Acid reflux DIETARY CONTROLLED/NO MEDS Appendicitis Chronic appendicitis Diverticular disease MULTIPLE INECTIONS; BOWEL RESECTION History of COVID-19 ?2021- FEVER, [place], FATIGUE; RESOLVED History of shingles 2018 Surgical History (Updated 10/10/22 @ 03:03 by Akira Hernandez MD) History of appendectomy 09-01-22 [facility] History of bowel resection 03-22-22 Sigmoid colon resection at [facility] History of colonoscopy History of surgery on arm LEFT BICEP RE ATTACHMENT History of total left knee replacement History of total right knee replacement Hx of resection of large bowel Family History Father Myocardial infarction Aunt Cancer Uncle Cancer Denies family history of Ovarian cancer Prostate cancer Breast cancer Colorectal cancer Social History Smoking Status: Never smoker Second Hand Exposure: No; Do You Dip or Chew Tobacco: No; Tobacco Cessation Education Requested by Patient: No Hx Alcohol Use: Yes Alcohol type: beer Hx Substance Use: No Preferred Language: Vietnamese Communication Ability: Effective Visual Impairment: No Limitations Creative Writing Professor Required: No Beliefs That Will Affect Care: None marital status: Single Current Living Situation: Other Current Living Situation Comment: Friend. current occupational status: employed current occupation: Self employeed How many Children do You have: 3 Other Information That Helps Us Care for You: No Feels Safe at Home: Yes Safety Concerns: Feels Safe At This Time Childhood Exposure to Second-Hand Smoke: Yes Diet: regular caffeine: Yes Dental Care, Regularly: No Physical Activity Frequency: Daily Seatbelt Use: never Sunscreen Use: No Assistive Devices: Glasses and Hospital Bed Physical Exam Vital Signs Vital Signs - 24 hr 10/09/22 18:55 Temperature 37.5 C Temperature Source Temporal Artery Scan Pulse Rate 116 H Respiratory Rate 20 Respiratory Effort / Characteristics Non-Labored Respiratory Depth Normal Blood Pressure 154/88 H Blood Pressure Mean 110 Pulse Oximetry 98 Oxygen Delivery Method Room Air Sepsis Recent Fever Within 48 Hours No Sepsis New/Unexplained Change in Mental Status No Sepsis Action Taken by Nursing No Action Required VITALS: Vitals are noted on the nurse's note and reviewed by myself. GENERAL: This is a 61-year-old male, in no acute distress, well-developed well-n ourished. SKIN: The skin was without rashes. EYES: Pupils equal round and reactive to light and accommodation. No scleral icterus. MOUTH: Mucous membranes moist. Tonsils are not enlarged. Pharynx without erythema or exudate. NECK: Supple without nuchal rigidity. No lymphadenopathy. HEART: Regular rate and rhythm without murmurs gallops or rubs. LUNGS: Clear to auscultation bilaterally without wheezes, rales or rhonchi. ABDOMEN: Positive bowel sounds x 4. Soft, moderate tenderness in the left lower quadrant. No guarding or rebound tenderness. NEURO: Patient was alert and oriented to person place and time. Course Administered Medications Piperacillin Sod/Tazobactam (Sod 4.5 gm/ Dextrose) 120 mls @ 30 mls/hr IV Q8H [facility]; Protocol Stop: 10/20/22 05:59 Last Admin: 10/10/22 14:14 Dose: 30 mls/hr Documented By: Infusion: 10/10/22 09:34 Dose: 0 mls/hr Documented By: Admin: 10/10/22 05:36 Dose: 30 mls/hr Documented By: RES Potassium Chloride/Sodium Chloride (Normal Saline W/20 Meq Kcl) 20 meq in 1,000 mls @ 80 mls/hr IV .[id number] [facility]; Protocol Stop: 11/09/22 00:40 Last Infusion: 10/10/22 14:14 Dose: 80 mls/hr Documented By: Admin: 10/10/22 11:40 Dose: 100 mls/hr Documented By: SMGerald Infusion: 10/10/22 10:41 Dose: 100 mls/hr Documented By: Admin: 10/10/22 00:41 Dose: 100 mls/hr Documented By: RES Discontinued Medications Sodium Chloride (Nss 1000ml) 1,000 mls @ 999 mls/hr IV .Q1H1M STA Stop: 10/09/22 19:56 Last Infusion: 10/09/22 21:27 Dose: 0 mls/hr Documented By: Admin: 10/09/22 19:34 Dose: 999 mls/hr Documented By: NAVI Piperacillin Sod/Tazobactam Sod (Zosyn) 4.5 gm in 120 mls @ 240 mls/hr IV NOW ONE Stop: 10/09/22 22:29 Last Infusion: 10/09/22 22:40 Dose: 0 mls/hr Documented By: Admin: 10/09/22 22:10 Dose: 240 mls/hr Documented By: ML Ioversol (Optiray 320 100ml) 91 ml IV ONCE ONE Stop: 10/09/22 20:44 Last Admin: 10/09/22 20:43 Dose: 91 ml Documented By: LESLIE Medical Decision Making Differential Diagnosis Appendicitis, testicular torsion, infections, diverticulitis, UTI, obstruction, mesenteric ischemia, aortic pathology, inflammatory bowel disease, renal colic, PUD, pancreatitis, biliary pathology, hernia, volvulus, constipation, as well as other pathologies. Home Medications was personally reviewed by me Laboratory Data Attestation: I reviewed the patient's lab results. 10/09/22 19:33 10/09/22 19:33 Lab Results 10/09/22 10/09/22 10/09/22 Range/Units 19:32 19:33 19:33 WBC 8.52 (4.8-10.8) K/ul RBC 4.41 L (4.70-6.10) M/uL Hgb 13.9 L (14.0-18.0) g/dl Hct 39.4 L (42.0-52.0) % MCV 89.3 (80.0-100.0) fL MCH 31.5 (25.0-34.0) pg MCHC 35.3 (32.0-36.0) g/dL RDW Std Deviation 39.1 (36.4-46.3) fL RDW Coeff of Lori 12.0 (11.5-14.5) % Plt Count 259 (130-400) K/uL MPV 9.8 (9.4-12.4) fL Immature Gran % (Auto) 0.4 % Neut % (Auto) 75.3 % Lymph % (Auto) 14.9 % [place] % (Auto) 8.8 % Eos % (Auto) 0.4 % Baso % (Auto) 0.2 % Neut # (Auto) 6.42 (1.40-6.50) K/uL Lymph # (Auto) 1.27 (1.20-3.40) K/uL [place] # (Auto) 0.75 H (0.11-0.59) K/uL Eos # (Auto) 0.03 (0.00-0.50) K/uL Baso # (Auto) 0.02 (0.00-0.20) K/uL Immature Gran # (Auto) 0.03 (0.01-0.20) K/uL Sodium 134 L (136-145) mmol/L Potassium 3.9 (3.5-5.1) mmol/L Chloride 98 (98-107) mmol/L Carbon Dioxide 25 (21-32) mmol/L Anion Gap 11 (3-11) BUN 6 (6-23) mg/dl Creatinine 0.84 (0.6-1.4) mg/dl Est Cr Clr Drug Dosing 101.4 ml/min Est GFR ( Amer) 109.5 ml/min Est GFR (Non-Af Amer) 94.5 ml/min BUN/Creatinine Ratio 7.1 L (10-20) Glucose 94 (70-99(Fasting)) mg/dl Calcium 10.2 (8.6-10.3) mg/dl Total Bilirubin 1.1 H (0.2-1.0) mg/dl AST 24 (13-39) U/L ALT 28 (7-52) U/L Alkaline Phosphatase 64 (34-104) U/L Total Protein 7.0 (6.0-8.3) gm/dl Albumin 4.8 (3.4-5.0) gm/dl Globulin 2.2 L (2.5-4.0) gm/dl Albumin/Globulin Ratio 2.2 H (0.9-2) Lipase 13 (11-82) U/L Urine Color Yellow Urine Appearance Clear (Clear) Urine pH 6.5 (4.5-7.5) Ur Specific [place] 1.006 (1.000-1.030) Urine Protein Negative (Negative) Urine Glucose (UA) Negative (Negative) Urine Ketones 2+ H (Negative) Urine Blood Negative (Negative) Urine Nitrite Negative (Negative) Urine Bilirubin Negative (Negative) Urine Urobilinogen Negative (Negative) Ur Leukocyte Esterase Negative (Negative) Imaging Data Attestation: I personally reviewed and interpreted this imaging study as follows: Radiologist's Impression: Abdomen/Pelvis CT 10/09/22 18:57 Exam(s): CT ABDOMEN + PELVIS With Contrast IV Amt: 91 m,l optiray 320 EXAM: CT Abdomen and Pelvis With Intravenous Contrast CLINICAL HISTORY: Recent diverticulitis, symptoms worsening LLQ pain. TECHNIQUE: Axial computed tomography images of the abdomen and pelvis with intravenous contrast. CTDI is 22.53 mGy and DLP is 1122.62 mGy-cm. Automated exposure control was utilized for the study. A dose lowering technique was utilized adhering to the principles of ALARA. CONTRAST: Patient received 91 ml optiray 320 of IV contrast COMPARISON: CT abdomen and pelvis with contrast dated 09/25/2022 FINDINGS: Lung bases: Unremarkable. No mass. No consolidation. ABDOMEN: Liver: Unremarkable. No mass. Gallbladder and bile ducts: Unremarkable. No calcified stones. No ductal dilation. Pancreas: Unremarkable. No mass. No ductal dilation. Spleen: Unremarkable. No splenomegaly. Adrenals: Unremarkable. No mass. Kidneys and ureters: Unremarkable. No solid mass. No hydronephrosis. Stomach and bowel: There is only minimal trace pericolonic fat stranding in the proximal sigmoid colon in the region of previous inflammatory changes on the prior exam. However, there is new mucosal thickening and pericolonic fat stranding involving the distal splenic flexure and proximal descending colon with regional diverticula noted. The stomach and small bowel loops are unremarkable and stable. Postsurgical changes noted in the terminal small bowel near the ileocecal valve. No obstruction. PELVIS: Appendix: The appendix is presumed surgically absent. Bladder: Unremarkable. No mass. Reproductive: Unremarkable as visualized. ABDOMEN and PELVIS: Intraperitoneal space: Unremarkable. No free air. No significant fluid collection. Bones/joints: No acute fracture. No dislocation. Soft tissues: Unremarkable. Vasculature: Unremarkable. No abdominal aortic aneurysm. Lymph nodes: Unremarkable. No enlarged lymph nodes. IMPRESSION: There is only minimal trace pericolonic fat stranding in the proximal sigmoid colon in the region of previous inflammatory changes on the prior exam. However, there is new mucosal thickening and pericolonic fat stranding involving the distal splenic flexure and proximal descending colon with regional diverticula noted. Findings are most consistent with a new focal area of diverticulitis involving the proximal descending colon. No abscess or perforation. No bowel obstruction. Electronically signed by: Niko Fleming MD 10/09/22 21:58 PM MDM Narrative This patient is a 61-year-old male who presents to the emergency department for evaluation of abdominal pain. Patient is currently on antibiotics for diverticulitis. He was seen here initially and placed on antibiotics at that time. He finished his course of antibiotics but had continued symptoms. His primary care provider prescribed additional antibiotics at that time. CT performed today and shows a new focus of diverticulitis despite the antibiotics. Given this, I do feel patient will require admission for IV antibiotics and possible surgical evaluation. Case was discussed with the hospitalist service, who agreed to evaluate the patient for further care. Impression Diverticulitis Discharge Plan Visit Data Chief Complaint: Abdominal Pain Stated Complaint: ABD PAIN, DIVERTICULITIS ED Provider: Kevin Iglesias ED Midlevel Provider: Diane Sharma Discharge Problem: Diverticulitis Patient Disposition: Admitted As Inpatient Discharge Instructions Interventions: ED Discharge Assessment Last Done: 10/10/22 00:25
--- NOTE | 2022-10-09 21:58 | CT Scan Report ---
Exam(s): CT ABDOMEN + PELVIS With Contrast IV Amt: 91 m,l optiray 320 EXAM: CT Abdomen and Pelvis With Intravenous Contrast CLINICAL HISTORY: Recent diverticulitis, symptoms worsening LLQ pain. TECHNIQUE: Axial computed tomography images of the abdomen and pelvis with intravenous contrast. CTDI is 22.53 mGy and DLP is 1122.62 mGy-cm. Automated exposure control was utilized for the study. A dose lowering technique was utilized adhering to the principles of ALARA. CONTRAST: Patient received 91 ml optiray 320 of IV contrast COMPARISON: CT abdomen and pelvis with contrast dated 09/25/2022 FINDINGS: Lung bases: Unremarkable. No mass. No consolidation. ABDOMEN: Liver: Unremarkable. No mass. Gallbladder and bile ducts: Unremarkable. No calcified stones. No ductal dilation. Pancreas: Unremarkable. No mass. No ductal dilation. Spleen: Unremarkable. No splenomegaly. Adrenals: Unremarkable. No mass. Kidneys and ureters: Unremarkable. No solid mass. No hydronephrosis. Stomach and bowel: There is only minimal trace pericolonic fat stranding in the proximal sigmoid colon in the region of previous inflammatory changes on the prior exam. However, there is new mucosal thickening and pericolonic fat stranding involving the distal splenic flexure and proximal descending colon with regional diverticula noted. The stomach and small bowel loops are unremarkable and stable. Postsurgical changes noted in the terminal small bowel near the ileocecal valve. No obstruction. PELVIS: Appendix: The appendix is presumed surgically absent. Bladder: Unremarkable. No mass. Reproductive: Unremarkable as visualized. ABDOMEN and PELVIS: Intraperitoneal space: Unremarkable. No free air. No significant fluid collection. Bones/joints: No acute fracture. No dislocation. Soft tissues: Unremarkable. Vasculature: Unremarkable. No abdominal aortic aneurysm. Lymph nodes: Unremarkable. No enlarged lymph nodes. IMPRESSION: There is only minimal trace pericolonic fat stranding in the proximal sigmoid colon in the region of previous inflammatory changes on the prior exam. However, there is new mucosal thickening and pericolonic fat stranding involving the distal splenic flexure and proximal descending colon with regional diverticula noted. Findings are most consistent with a new focal area of diverticulitis involving the proximal descending colon. No abscess or perforation. No bowel obstruction. Electronically signed by: Niko Fleming MD 10/09/22 21:58 PM
[2022-10-09] MEDS ORDERED: PIPERACILLIN/TAZOBACTAM 4.5 GM/120 ML BAG IV ONE (22:00)
--- NOTE | 2022-10-09 23:55 | History & Physical Report ---
Date of Service October 09, 2022 Assessment & Plan (1) Diverticulitis: (2) Hx of resection of large bowel: Plan Recurrent/nonhealing/diverticulitis- Failure of outpatient treatment History of colocolonic anastomosis as revealed during colonoscopy by Dr. Keys on 05/25/2022 NPO Hold Augmentin Zosyn 4.5 g IV every 8 hours Zofran 4 mg IV every 6 hours as needed NSS + KCl 20 mEq at 100 mils per hour Acetaminophen 1 g IV every 8 hours as needed mild pain or fever Appendicitis/appendectomy- Recent surgery on 08/31/2027 History of Present Illness Chief Complaint: The patient presents to the emergency department with complaint of worsening abdominal pain, this been associated with a recurrence of diverticulitis that he has been on antibiotics for by his PCP in the outpatient setting Primary Care Provider: Obed Jones DO The patient is a 61-year-old male with a past medical history including diverticulitis, shingles, history of and to and colocolonic anastomosis, and recent admission for appendicitis with appendectomy from 08/31-09/02/2022. He underwent a colonoscopy on 05/25/2022 which revealed an isolated descending colon 3 mm polyp. He reports he underwent a 2-week course of antibiotics for residual episode of diverticulitis in August, he was then admitted for appendicitis and appendectomy from 08/31-09/02/2022, and most recently had begun an antibiotic course of Augmentin 3 times daily for 10 days, after being seen by his PCP for recurrence of his diverticular type abdominal pain on 10/06/2022. With the fact he continued to get worse in spite of the Augmentin he is now taking, he presented to the ED for assessment this evening. CT scan of abdomen and pelvis this evening shows improvement in previous areas, but now has new focal areas of diverticulitis. Allergies Allergy/AdvReac Type Severity Reaction Status Date / Time No Known Allergies Allergy Verified 10/09/22 21:51 Home Medications Medication Instructions Recorded Confirmed Type multivitamin (Multiple Vitamins 1 tab PO QAM 02/28/18 10/09/22 History tablet) amoxicillin 875 mg-potassium 1 tab PO TID 10 days #30 tabs 10/06/22 10/09/22 Rx clavulanate 125 mg tablet Past Med/Surg History Medical History (Updated 10/10/22 @ 00:11 by Precious López) Acid reflux DIETARY CONTROLLED/NO MEDS Appendicitis Chronic appendicitis Diverticular disease MULTIPLE INECTIONS; BOWEL RESECTION History of COVID-19 ?2021- FEVER, NEVIL[place], FATIGUE; RESOLVED History of shingles 2018 Surgical History (Updated 10/10/22 @ 03:03 by Akira Hernandez MD) History of appendectomy 09-01-22 [facility] History of bowel resection 03-22-22 Sigmoid colon resection at [facility] History of colonoscopy History of surgery on arm LEFT BICEP RE ATTACHMENT History of total left knee replacement History of total right knee replacement Hx of resection of large bowel Family History Father Myocardial infarction Aunt Cancer Uncle Cancer Denies family history of Ovarian cancer Prostate cancer Breast cancer Colorectal cancer Social History Smoking Status: Never smoker Second Hand Exposure: No; Do You Dip or Chew Tobacco: No; Tobacco Cessation Education Requested by Patient: No Hx Alcohol Use: Yes Alcohol type: beer Hx Substance Use: No Preferred Language: Jamaican Communication Ability: Effective Visual Impairment: No 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 current occupational status: employed current occupation: Self employeed How many Children do You have: 3 Other Information That Helps Us Care for You: No Feels Safe at Home: Yes Safety Concerns: Feels Safe At This Time Childhood Exposure to Second-Hand Smoke: Yes Diet: regular caffeine: Yes Dental Care, Regularly: No Physical Activity Frequency: Daily Seatbelt Use: never Sunscreen Use: No Assistive Devices: Glasses and Hospital Bed Review of Systems Review of Systems: The patient denies chest pain, palpitations, shortness of breath, dyspnea on exertion, cough, lower extremity swelling, sore throat, fevers, chills, sweats, nausea, vomiting, blood in urine or stool, dysuria, urinary frequency or urgency, lightheadedness, dizziness, headache, memory loss, loss of consciousness, rash, abnormal bruising or bleeding, imbalance, focal or generalized weakness, numbness or tingling in arms or legs, generalized arthralgias or myalgias, back or neck pain, or night sweats. The review of systems is otherwise negative other than for that already noted above, and at least 10 systems have been reviewed. Physical Exam Physical Exam: The patient is awake, alert and oriented 3, well developed and well nourished, normocephalic and atraumatic, lying in bed and in no acute distress. HEENT--PERRL, EOMI, mucous membranes and oropharynx mildly dry. Neck--supple. No JVD. No bruits. Thyroid normal, trachea midline, no adenopathy. Heart--normal S1 and S2. No murmurs, rubs or gallops. Lungs--clear bilaterally, no respiratory distress, no accessory muscle use. Abdomen--normal bowel sounds and soft. Nontender. Nondistended, no hernias or masses, no organomegaly. Extremities--no cyanosis or clubbing. No edema. There are good distal pulses b/l. Dermatologic--normal skin turgor, normal color, no abnormal lymph nodes, no rash. Neurologic--cranial nerves II through XII grossly intact. Rheumatologic--normal range of motion. Psychiatric--normal affect. Results & Data Results & Data Vital Signs (Past 12 Hours) Vital Signs Temp Pulse Resp BP Pulse Ox O2 Del Method 10/09/22 18:55 37.5 C 116 H 20 154/88 H 98 Room Air Laboratory Results Laboratory Results WBC 8.52 K/ul (4.8-10.8) 10/09/22 19:33 RBC 4.41 M/uL (4.70-6.10) L 10/09/22 19:33 Hgb 13.9 g/dl (14.0-18.0) L 10/09/22 19:33 Hct 39.4 % (42.0-52.0) L 10/09/22 19:33 MCV 89.3 fL (80.0-100.0) 10/09/22 19:33 MCH 31.5 pg (25.0-34.0) 10/09/22 19: MCHC 35.3 g/dL (32.0-36.0) 10/09/22 19:33 RDW Std Deviation 39.1 fL (36.4-46.3) 10/09/22 19:33 RDW Coeff of Lori 12.0 % (11.5-14.5) 10/09/22 19:33 Plt Count 259 K/uL (130-400) 10/09/22 19:33 MPV 9.8 fL (9.4-12.4) 10/09/22 19:33 Immature Gran % (Auto) 0.4 % 10/09/22 19:33 Neut % (Auto) 75.3 % 10/09/22 19:33 Lymph % (Auto) 14.9 % 10/09/22 19:33 [place] % (Auto) 8.8 % 10/09/22 19:33 Eos % (Auto) 0.4 % 10/09/22 19:33 Baso % (Auto) 0.2 % 10/09/22 19:33 Neut # (Auto) 6.42 K/uL (1.40-6.50) 10/09/22 19:33 Lymph # (Auto) 1.27 K/uL (1.20-3.40) 10/09/22 19:33 [place] # (Auto) 0.75 K/uL (0.11-0.59) H 10/09/22 19:33 Eos # (Auto) 0.03 K/uL (0.00-0.50) 10/09/22 19:33 Baso # (Auto) 0.02 K/uL (0.00-0.20) 10/09/22 19:33 Immature Gran # (Auto) 0.03 K/uL (0.01-0.20) 10/09/22 19:33 Sodium 134 mmol/L (136-145) L 10/09/22 19:33 Potassium 3.9 mmol/L (3.5-5.1) 10/09/22 19:33 Chloride 98 mmol/L (98-107) 10/09/22 19:33 Carbon Dioxide 25 mmol/L (21-32) 10/09/22 19:33 Anion Gap 11 (3-11) 10/09/22 19:33 BUN 6 mg/dl (6-23) 10/09/22 19:33 Creatinine 0.84 mg/dl (0.6-1.4) 10/09/22 19:33 Est Cr Clr Drug Dosing 101.4 ml/min 10/09/22 19:33 Est GFR ( Amer) 109.5 ml/min 10/09/22 19:33 Est GFR (Non-Af Amer) 94.5 ml/min 10/09/22 19:33 BUN/Creatinine Ratio 7.1 (10-20) L 10/09/22 19:33 Glucose 94 mg/dl (70-99(Fasting)) 10/09/22 19:33 Calcium 10.2 mg/dl (8.6-10.3) 10/09/22 19:33 Total Bilirubin 1.1 mg/dl (0.2-1.0) H 10/09/22 19:33 AST 24 U/L (13-39) 10/09/22 19:33 ALT 28 U/L (7-52) 10/09/22 19:33 Alkaline Phosphatase 64 U/L (34-104) 10/09/22 19:33 Total Protein 7.0 gm/dl (6.0-8.3) 10/09/22 19:33 Albumin 4.8 gm/dl (3.4-5.0) 10/09/22 19:33 Globulin 2.2 gm/dl (2.5-4.0) L 10/09/22 19:33 Albumin/Globulin Ratio 2.2 (0.9-2) H 10/09/22 19:33 Lipase 13 U/L (11-82) 10/09/22 19:33 Urine Color Yellow 10/09/22 19:32 Urine Appearance Clear (Clear) 10/09/22 19:32 Urine pH 6.5 (4.5-7.5) 10/09/22 19:32 Ur Specific [place] 1.006 (1.000-1.030) 10/09/22 19:32 Urine Protein Negative (Negative) 10/09/22 19:32 Urine Glucose (UA) Negative (Negative) 10/09/22 19:32 Urine Ketones 2+ (Negative) H 10/09/22 19:32 Urine Blood Negative (Negative) 10/09/22 19:32 Urine Nitrite Negative (Negative) 10/09/22 19:32 Urine Bilirubin Negative (Negative) 10/09/22 19:32 Urine Urobilinogen Negative (Negative) 10/09/22 19:32 Ur Leukocyte Esterase Negative (Negative) 10/09/22 19:32 Impressions Abdomen/Pelvis CT 10/09/22 18:57 Exam(s): CT ABDOMEN + PELVIS With Contrast IV Amt: 91 m,l optiray 320 EXAM: CT Abdomen and Pelvis With Intravenous Contrast CLINICAL HISTORY: Recent diverticulitis, symptoms worsening LLQ pain. TECHNIQUE: Axial computed tomography images of the abdomen and pelvis with intravenous contrast. CTDI is 22.53 mGy and DLP is 1122.62 mGy-cm. Automated exposure control was utilized for the study. A dose lowering technique was utilized adhering to the principles of ALARA. CONTRAST: Patient received 91 ml optiray 320 of IV contrast COMPARISON: CT abdomen and pelvis with contrast dated 09/25/2022 FINDINGS: Lung bases: Unremarkable. No mass. No consolidation. ABDOMEN: Liver: Unremarkable. No mass. Gallbladder and bile ducts: Unremarkable. No calcified stones. No ductal dilation. Pancreas: Unremarkable. No mass. No ductal dilation. Spleen: Unremarkable. No splenomegaly. Adrenals: Unremarkable. No mass. Kidneys and ureters: Unremarkable. No solid mass. No hydronephrosis. Stomach and bowel: There is only minimal trace pericolonic fat stranding in the proximal sigmoid colon in the region of previous inflammatory changes on the prior exam. However, there is new mucosal thickening and pericolonic fat stranding involving the distal splenic flexure and proximal descending colon with regional diverticula noted. The stomach and small bowel loops are unremarkable and stable. Postsurgical changes noted in the terminal small bowel near the ileocecal valve. No obstruction. PELVIS: Appendix: The appendix is presumed surgically absent. Bladder: Unremarkable. No mass. Reproductive: Unremarkable as visualized. ABDOMEN and PELVIS: Intraperitoneal space: Unremarkable. No free air. No significant fluid collection. Bones/joints: No acute fracture. No dislocation. Soft tissues: Unremarkable. Vasculature: Unremarkable. No abdominal aortic aneurysm. Lymph nodes: Unremarkable. No enlarged lymph nodes. IMPRESSION: There is only minimal trace pericolonic fat stranding in the proximal sigmoid colon in the region of previous inflammatory changes on the prior exam. However, there is new mucosal thickening and pericolonic fat stranding involving the distal splenic flexure and proximal descending colon with regional diverticula noted. Findings are most consistent with a new focal area of diverticulitis involving the proximal descending colon. No abscess or perforation. No bowel obstruction. Electronically signed by: Niko Fleming MD 10/09/22 21:58 PM Code Status & VTE Plan Code Status Full code VTE Prophylaxis Plan VTE Prophylaxis will be ordered: Yes PG Care Time/CCT Total # of Minutes Spent Total Time Spent with Patient: Total time spent is greater than 50% in coordination of care (as documented) at patient's floor/unit and/or counseling patient: Coding Level of Care Code 32079 INT INP/OBS CARE MIN Diagnoses Diverticulitis K57.92 Hx of resection of large bowel Z90.49
[2022-10-10] MEDS: NSS + 20MEQ KCL 20 MEQ/1,000 ML BAG IV SCH ×3 (00:41→21:09)
[2022-10-10] MEDS ORDERED: ONDANSETRON INJ 2 MG/ML 2 ML VIAL IV PRN (00:41)
[2022-10-10] MEDS ORDERED: ACETAMINOPHEN 1000 MG/100 ML IV IV PRN (00:41)
[2022-10-10] MEDS: PIPERACILLIN/TAZOBACTAM 4.5 GM in DEXTROSE 5% 100 ML IV SCH ×3 (05:36→21:12)
[2022-10-10 07:26] LABS: Basophils # (auto) 0.02 K/uL (0.00-0.20); Basophils % (auto) 0.3 %; Eosinophils # (auto) 0.03 K/uL (0.00-0.50); Eosinophils % (auto) 0.5 %; Hematocrit (blood only) 33.5 % (42.0-52.0); Hemoglobin 12.1 g/dl (14.0-18.0); Immature Granulocytes # (auto) 0.01 K/uL (0.01-0.20); Immature Granulocytes % (auto) 0.2 %; Lymphocytes # (auto) 0.82 K/uL (1.20-3.40); Lymphocytes % (auto) 12.7 %; Mean Corpuscular Hemoglobin 31.8 pg (25.0-34.0); Mean Corpuscular Hgb Conc 36.1 g/dL (32.0-36.0); Mean Corpuscular Volume 87.9 fL (80.0-100.0); Mean Platelet Volume 9.8 fL (9.4-12.4); Monocytes # (auto) 0.71 K/uL (0.11-0.59); Neutrophils # (auto) 4.86 K/uL (1.40-6.50); Neutrophils % (auto) 75.3 %; Platelet Count 190 K/uL (130-400); RDW Coefficient of Variation 12.3 % (11.5-14.5); RDW Standard Deviation 39.3 fL (36.4-46.3); Red Blood Count 3.81 M/uL (4.70-6.10); White Blood Count 6.45 K/ul (4.8-10.8)
[2022-10-10 07:34] LABS: Albumin Globulin Ratio 1.7 (0.9-2); BUN Creatinine Ratio 6.8 (10-20); Creatinine Clr Calc Pharmacy 116.6 ml/min; Est GFR (Non-African American) 100.1 ml/min; Globulin 2.4 gm/dl (2.5-4.0); Magnesium 1.9 mg/dl (1.7-2.4); Potassium 3.8 mmol/L (3.5-5.1); Total Protein 6.4 gm/dl (6.0-8.3)
--- NOTE | 2022-10-10 15:59 | Hospitalist Progress Note ---
Date of Service October 10, 2022 Assessment & Plan (1) Diverticulitis: Plan: Acute sigmoid diverticulitis present on admission. Continue intravenous Zosyn, day 2. Clear liquid diet for now. Continue IV fluids. Serial labs (2) Hx of resection of large bowel: Plan: Due to recurrent diverticulitis Plan Hopeful discharge to home soon on oral antibiotic. We will treat with intravenous Cipro and Flagyl due to apparent Augmentin failure. Admission and Anticipated Discharge Date Admission Date: October 09, 2022 Subjective Alert and oriented. No distress. He remains on intravenous Zosyn, day 2. Will allow clear liquids for now and decrease IV fluids. Continue serial labs. Hopefully home soon. Review of Systems Review of Systems: Constitutional-no fever or chills ENT-no blurred vision, no double vision, no epistaxis, no sore throat Respiratory-no cough, no wheezing, no shortness of breath Cardiac-no palpitations, no chest pain, no syncope GI-occasional nausea. No vomiting. No diarrhea, melena, hematochezia -no urinary retention, no urinary incontinence, no dysuria, no hematuria Musculoskeletal-no joint pain, no muscle tenderness Skin-no bruising, no rashes, no pruritus Neuro-no isolated weakness, no paresthesia, no weakness Psych-no depression, no anxiety Physical Exam Physical Exam: General-alert and oriented x3, no fevers, no chills HEENT-head atraumatic and normocephalic, pupils equal and reactive to light, extraocular muscles intact Neck-no lymphadenopathy or thyromegaly, trachea midline Chest-clear to auscultation percussion. No rales, wheezing or rhonchi Cardiac-regular rate and rhythm, normal S1 and S2 Abdomen-normal bowel sounds, no hepatosplenomegaly. Left lower quadrant tenderness. No masses. No rebound or guarding Extremities-no cyanosis, clubbing, or edema Neuro-cranial nerves II through XII intact, motor and sensory function within normal limits, strength symmetrical , no focal deficits Psych-normal affect, normal mood Results & Data Results & Data Vital Signs (Past 12 Hours) Vital Signs Temp Pulse Resp BP Pulse Ox O2 Del Method 10/10/22 07:24 37.0 C 83 18 124/83 97 Room Air Laboratory Results 10/10/22 06:34 10/10/22 06:34 PG Care Time/CCT Total # of Minutes Spent Total Time Spent with Patient: Total time spent is greater than 50% in coordination of care (as documented) at patient's floor/unit and/or counseling patient: Coding Level of Care Code 62711 SUB INP/OBS CARE 50MIN Diagnoses Diverticulitis K57.92 Hx of resection of large bowel Z90.49
[2022-10-11] MEDS: PIPERACILLIN/TAZOBACTAM 4.5 GM in DEXTROSE 5% 100 ML IV SCH ×3 (05:46→21:43)
[2022-10-11 06:45] LABS: Basophils # (auto) 0.02 K/uL (0.00-0.20); Basophils % (auto) 0.3 %; Eosinophils % (auto) 1.3 %; Hematocrit (blood only) 34.3 % (42.0-52.0); Hemoglobin 12.2 g/dl (14.0-18.0); Immature Granulocytes # (auto) 0.02 K/uL (0.01-0.20); Immature Granulocytes % (auto) 0.3 %; Lymphocytes % (auto) 11.6 %; Mean Corpuscular Hgb Conc 35.6 g/dL (32.0-36.0); Mean Platelet Volume 9.7 fL (9.4-12.4); Neutrophils # (auto) 6.02 K/uL (1.40-6.50); Neutrophils % (auto) 77.5 %; Platelet Count 195 K/uL (130-400); RDW Coefficient of Variation 12.5 % (11.5-14.5); RDW Standard Deviation 40.5 fL (36.4-46.3); Red Blood Count 3.81 M/uL (4.70-6.10); White Blood Count 7.76 K/ul (4.8-10.8)
[2022-10-11 07:10] LABS: BUN Creatinine Ratio 5.5 (10-20); Calcium 8.8 mg/dl (8.6-10.3); Creatinine Clr Calc Pharmacy 116.6 ml/min; Est GFR (Non-African American) 100.1 ml/min
[2022-10-11] MEDS: NSS + 20MEQ KCL 20 MEQ/1,000 ML BAG IV SCH (12:34)
--- NOTE | 2022-10-11 13:51 | Hospitalist Progress Note ---
Date of Service October 11, 2022 Assessment & Plan (1) Diverticulitis: Plan: Acute sigmoid diverticulitis present on admission. Continue intravenous Zosyn, day 3. Diet advanced to full liquids. IV fluids have been further tapered down. (2) Hx of resection of large bowel: Plan: Due to recurrent diverticulitis Plan Hopeful discharge to home tomorrow, October 12, on oral antibiotic. We will treat with oral Cipro and Flagyl due to apparent Augmentin failure. Admission and Anticipated Discharge Date Admission Date: October 09, 2022 Subjective Continued improvement. Afebrile. Vital signs are stable. He remains on intravenous Zosyn, day 3. Diet has been advanced to full liquids and IV fluids taper down further. Probably home tomorrow, October 12 on Cipro and Flagyl Review of Systems Review of Systems: Constitutional-no fever or chills ENT-no blurred vision, no double vision, no epistaxis, no sore throat Respiratory-no cough, no wheezing, no shortness of breath Cardiac-no palpitations, no chest pain, no syncope GI-occasional nausea. No vomiting. No diarrhea, melena, hematochezia -no urinary retention, no urinary incontinence, no dysuria, no hematuria Musculoskeletal-no joint pain, no muscle tenderness Skin-no bruising, no rashes, no pruritus Neuro-no isolated weakness, no paresthesia, no weakness Psych-no depression, no anxiety Physical Exam Physical Exam: General-alert and oriented x3, no fevers, no chills HEENT-head atraumatic and normocephalic, pupils equal and reactive to light, extraocular muscles intact Neck-no lymphadenopathy or thyromegaly, trachea midline Chest-clear to auscultation percussion. No rales, wheezing or rhonchi Cardiac-regular rate and rhythm, normal S1 and S2 Abdomen-normal bowel sounds, no hepatosplenomegaly. Left lower quadrant tenderness has improved. No masses. No rebound or guarding Extremities-no cyanosis, clubbing, or edema Neuro-cranial nerves II through XII intact, motor and sensory function within normal limits, strength symmetrical , no focal deficits Psych-normal affect, normal mood Results & Data Results & Data Vital Signs (Past 12 Hours) Vital Signs Temp Pulse Resp BP BP Pulse Ox O2 Del Method 10/11/22 11:30 37.1 C 83 18 126/82 123/79 98 Room Air 10/11/22 07:39 37.1 C 83 18 125/80 95 Room Air Laboratory Results 10/11/22 06:01 10/11/22 06:01 PG Care Time/CCT Total # of Minutes Spent Total Time Spent with Patient: Total time spent is greater than 50% in coordination of care (as documented) at patient's floor/unit and/or counseling patient: Coding Level of Care Code 72601 SUB INP/OBS CARE 235MIN Diagnoses Diverticulitis K57.92 Hx of resection of large bowel Z90.49
[2022-10-12] MEDS: NSS + 20MEQ KCL 20 MEQ/1,000 ML BAG IV SCH (04:28)
[2022-10-12] MEDS: PIPERACILLIN/TAZOBACTAM 4.5 GM in DEXTROSE 5% 100 ML IV SCH (05:52)
[2022-10-12 08:40] LABS: Basophils # (auto) 0.03 K/uL (0.00-0.20); Basophils % (auto) 0.6 %; Eosinophils # (auto) 0.14 K/uL (0.00-0.50); Eosinophils % (auto) 2.8 %; Hematocrit (blood only) 37.2 % (42.0-52.0); Hemoglobin 12.9 g/dl (14.0-18.0); Immature Granulocytes # (auto) 0.01 K/uL (0.01-0.20); Immature Granulocytes % (auto) 0.2 %; Lymphocytes % (auto) 22.1 %; Mean Corpuscular Hemoglobin 31.9 pg (25.0-34.0); Mean Corpuscular Hgb Conc 34.7 g/dL (32.0-36.0); Mean Corpuscular Volume 91.9 fL (80.0-100.0); Mean Platelet Volume 9.8 fL (9.4-12.4); Neutrophils % (auto) 66.3 %; Platelet Count 199 K/uL (130-400); RDW Coefficient of Variation 12.2 % (11.5-14.5); RDW Standard Deviation 40.6 fL (36.4-46.3); Red Blood Count 4.05 M/uL (4.70-6.10); White Blood Count 4.98 K/ul (4.8-10.8)
[2022-10-12 09:06] LABS: BUN Creatinine Ratio 4.6 (10-20); Calcium 9.4 mg/dl (8.6-10.3); Est GFR (African American) 121.7 ml/min; Potassium 3.9 mmol/L (3.5-5.1)
--- NOTE | 2022-10-12 12:52 | Discharge Summary ---
Date of Service October 12, 2022 Admission HPI Per Admitting Provider The patient is a 61-year-old male with a past medical history including diverticulitis, shingles, history of and to and colocolonic anastomosis, and recent admission for appendicitis with appendectomy from 08/31-09/02/2022. He underwent a colonoscopy on 05/25/2022 which revealed an isolated descending colon 3 mm polyp. He reports he underwent a 2-week course of antibiotics for residual episode of diverticulitis in August, he was then admitted for appendicitis and appendectomy from 08/31-09/02/2022, and most recently had begun an antibiotic course of Augmentin 3 times daily for 10 days, after being seen by his PCP for recurrence of his diverticular type abdominal pain on 10/06/2022. With the fact he continued to get worse in spite of the Augmentin he is now taking, he presented to the ED for assessment this evening. CT scan of abdomen and pelvis this evening shows improvement in previous areas, but now has new focal areas of diverticulitis. Principal Diagnosis Recurrent diverticulitis Discharge Exam General-alert and oriented x3, no fevers, no chills HEENT-head atraumatic and normocephalic, pupils equal and reactive to light, extraocular muscles intact Neck-no lymphadenopathy or thyromegaly, trachea midline Chest-clear to auscultation percussion. No rales, wheezing or rhonchi Cardiac-regular rate and rhythm, normal S1 and S2 Abdomen-normal bowel sounds, no hepatosplenomegaly. Left lower quadrant tenderness has improved. No masses. No rebound or guarding Extremities-no cyanosis, clubbing, or edema Neuro-cranial nerves II through XII intact, motor and sensory function within normal limits, strength symmetrical , no focal deficits Psych-normal affect, normal mood Discharge Data Allergies Allergy/AdvReac Type Severity Reaction Status Date / Time No Known Allergies Allergy Verified 10/09/22 21:51 Consultations 10/09/22 22:42 ED Decision to Admit Stat Ordered Studies 10/09/22 18:57 CT abd pelvis IV con only Stat Hospital Course (1) Diverticulitis: Acute sigmoid diverticulitis present on admission. Treated while hospitalized with intravenous intravenous Zosyn, day 4. Diet has been advanced. Home today on oral Cipro and Flagyl, October 12 (2) Hx of resection of large bowel: Due to recurrent diverticulitis Plan Home today, October 12, on Cipro and Flagyl Total Time Total Time Spent Total Time Spent (In Minutes): 45 minutes Discharge Plan Discharge Items Patient Disposition: Home - Self-Care Reason For Visit: DIVERTICULITIS Discharge Diagnosis: Recurrent left-sided diverticulitis Activity: Resume your previous activity Non-emergency contact: Primary Care Provider Call non-emergency contact if: you have any medication questions and your symptoms worsen Follow-up/Referrals: Obed Jones, [Primary Care Provider] - Diet: Regular Addtl Attending Provider Instructions: Take Cipro and Flagyl for 1 week as directed Pending Studies at Discharge: No Stand-Alone Forms: [employer], Smoking Cessation Medications and DC Order Prescriptions: New ciprofloxacin HCl [Cipro] 500 mg tablet 500 mg PO BID Qty: 14 0RF metronidazole 500 mg tablet 500 mg PO TID Qty: 21 0RF Continued multivitamin [Multiple Vitamins] Tablet 1 tab PO QAM Discontinued amoxicillin-pot clavulanate 875-125 mg tablet 1 tab PO TID 10 Days Qty: 30 0RF Discharge Orders: Discharge Order (Routine); Ordered 10/12/22 Ordered By: Neal Velasco Admission Data Admit Date/Time: 10/09/22 23:54 Attending Provider: Neal eVlasco Admit Provider: Akira Hernandez Primary Care Provider: Obed Jones Other Providers: Akira Hernandez Coding Level of Care Code 97178 INP/OBS DISCH >30 MIN Diagnoses Diverticulitis K57.92 Hx of resection of large bowel Z90.49
== END 2022-10-12 13:53 | disposition home or self-care (01) | DRG 392 ==
LOC: ED 18:48 → SUATTDRO 23:54 → 3N 23:54 → UNDODISIN 10-12 13:13